=== PATIENT | female | born 1950 | race Caucasian/White ===

== ENCOUNTER 2017-09-16 06:28 | Emergency (ER) | payer BC, OTHER ==
[2017-09-16] MEDS ORDERED: Ibuprofen TAB* 800 MG PO ONE (06:57)
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
--- NOTE | 2017-09-16 07:48 | RAD ---
INDICATION: Left ankle pain COMPARISON: None TECHNIQUE: AP, lateral, and oblique views were obtained. FINDINGS: There is diffuse soft tissue swelling with small avulsed fragments from both medial and lateral malleoli. Along the medial aspect these may be related to a remote injury. The small avulsion fracture from the lateral malleolus appears acute. The ankle mortise is intact. Note is made of a prominent heel spur and degenerative spurring over the dorsum of the midfoot. IMPRESSION: DIFFUSE SOFT TISSUE SWELLING SMALL AVULSION INJURIES.
[2017-09-16 10:49] VITALS: BP 144/67
== END 2017-09-16 10:47 | disposition home or self-care (01) ==
LOC: ED 06:28
DX: S82.892A Other fracture of left lower leg, initial encounter for closed fracture (principal); M25.572 Pain in left ankle and joints of left foot; X50.0XXA Overexertion from strenuous movement or load, initial encounter; Y92.480 Sidewalk as the place of occurrence of the external cause
CPT/HCPCS: 99282; A9270-GY

== ENCOUNTER 2018-05-31 12:47 | Emergency (ER) | payer MEDICARE, OTHER ==
--- NOTE | 2018-05-31 14:41 | ED ---
Shortness of Breath - HPI Summary HPI Summary: This patient is a 67 year old F presenting to [facility] with a chief complaint of worsening SOB since one month ago. Symptoms not alleviated by Ventolin inhaler. Patient reports fatigue, pressure BELL, neck pain, weakness, back pain, difficulty moving the right side of her face and body, diarrhea, and dehydration. The symptoms began after a 3 day cold one month ago. Symptoms are not relieved by OTM medication. The patient states that she has a sensation of fullness and bloating after eating. The patient was seen at [facility] 1.5 weeks ago, diagnosed with a sinus infection, and placed on antibiotics. She has also started on Chantix to stop smoking but stopped after two days. The Chantix made her very ill, but it could also have been a reaction to the antibiotic. The patient says she has had too much diarrhea and had to stop taking her antibiotics. The stool would drip out of her rectum as a pure liquid. The patient says a CXR revealed something in the right side of her lung, but her doctor could not confirm what it was. The patient started taking Mucinex yesterday. SHX tobacco use. RX Inhaler. Vitals in the room: HR 84 bpm BP 127/83. - History of Current Complaint Chief Complaint: EDGeneral Time Seen by Provider: 05/31/18 14:11 Hx Obtained From: Patient Onset/Duration: Gradual Onset, Lasting Weeks, Still Present Timing: Constant Dyspnea At: Rest Associated Signs & Symptoms: Cough (Productive) - Allergy/Home Medications Allergies/Adverse Reactions: Allergies Allergy/AdvReac Type Severity Reaction Status Date / Time bee venom protein (honey bee) Allergy Anaphylatic Verified 05/31/18 15:07 Shock Hmszhbn-Mrh-Lrv Reductase Allergy Hives Verified 05/31/18 15:07 Inhibitor PMH/Surg Hx/FS Hx/Imm Hx Endocrine/Hematology History: Denies: Hx Anticoagulant Therapy, Hx Blood Disorders Respiratory History: Reports: Hx Asthma GI History: Reports: Hx Gastroesophageal Reflux Disease - OCC Sensory History: Reports: Hx Cataracts, Hx Contacts or Glasses - GLASSES Denies: Hx Hearing Aid Opthamlomology History: Reports: Hx Cataracts, Hx Contacts or Glasses - GLASSES Psychiatric History: Reports: Hx Depression - on med - Cancer History Hx Chemotherapy: No Hx Radiation Therapy: No - Surgical History Surgery Procedure, Year, and Place: TUBAL MANY YEARS A[place] [facility] [place] LAP BRITNEY [facility] [place] 2004. TRIGGER FINGER [facility] [place] 2009 Hx Anesthesia Reactions: No Infectious Disease History: No Infectious Disease History: Denies: Traveled Outside the [place] in Last 30 Days - Family History Known Family History: Positive: Other - asthma - Social History Alcohol Use: None Hx Substance Use: No Substance Use Type: Reports: None Hx Tobacco Use: Yes Smoking Status (MU): Current Every Day Smoker Length of Time of Smoking/Using Tobacco: 47 YRS Have You Smoked in the Last Year: Yes Review of Systems Positive: Fatigue ENT: Other - pain right side of face Positive: Shortness Of Breath, Cough Positive: Diarrhea, Other - bloated after eating Positive: Myalgia - neck, back Positive: Headache - pressure, Weakness All Other Systems Reviewed And Are Negative: Yes Physical Exam - Summary Physical Exam Summary: Appearance: The patient is well-nourished in no acute distress and in no acute pain. Skin: The skin is warm and dry and skin color reflects adequate perfusion. HEENT: The head is normocephalic and atraumatic. The pupils are equal and reactive. The conjunctivae are clear and without drainage. Nares are patent and without drainage. Mouth reveals moist mucous membranes and the throat is without erythema and exudate. The external ears are intact. The ear canals are patent and without drainage. The tympanic membranes are intact. Neck: The neck is supple with full range of motion and non-tender. There are no carotid bruits. There is no neck vein distension. Respiratory: Chest is non-tender. Lungs are clear to auscultation and breath sounds are decreased in all lung lowry. Cardiovascular: Heart is regular rate and rhythm. There is no murmur or rub auscultated. There is no peripheral edema and pulses are symmetrical and equal. Abdomen: The abdomen is soft and non-tender. There are normal bowel sounds heard in all four quadrants and there is no organomegaly palpated. Musculoskeletal: There is no back tenderness noted. Extremities are non-tender with full range of motion. There is good capillary refill. There is no peripheral edema or calf tenderness elicited. Neurological: Patient is alert and oriented to person, place and time. The patient has symmetrical motor strength in all four extremities. Cranial nerves are grossly intact. Deep tendon reflexes are symmetrical and equal in all four extremities. Psychiatric: The patient has an appropriate affect and does not exhibit any anxiety or depression Triage Information Reviewed: Yes Vital Signs On Initial Exam: Initial Vitals Temp Pulse Resp BP Pulse Ox 98.1 F 94 16 147/89 96 05/31/18 12:49 05/31/18 12:49 05/31/18 12:49 05/31/18 12:49 05/31/18 12:49 Vital Signs Reviewed: Yes Diagnostics - Vital Signs Vital Signs Temp Pulse Resp BP Pulse Ox 05/31/18 12:49 98.1 F 94 16 147/89 96 - Laboratory Result Diagrams: 05/31/18 14:53 05/31/18 14:53 Lab Statement: Any lab studies that have been ordered have been reviewed, and results considered in the medical decision making process. - Radiology CXR Radiology Interpretation Completed By: Radiologist Summary of Radiographic Findings: FINDINGS SUSPICIOUS FOR RIGHT UPPER LOBE AND RIGHT HILAR MASSES. RECOMMEND A. CT OF THE CHEST WITH CONTRAST FOR FURTHER EVALUATION. ED physician has reviewed this report - CT Chest CT Interpretation Completed By: Radiologist Summary of CT Findings: 1. RIGHT UPPER LOBE SPICULATED MASS SUSPICIOUS FOR BRONCHOGENIC CARCINOMA. 2. MARKEDLY ENLARGED MEDIASTINAL LYMPH NODES AND ENLARGED RIGHT HILAR AND RIGHT. SUPRACLAVICULAR LYMPH NODES. 3. COMPRESSION AND DISPLACEMENT OF THE TRACHEA AND RELATIVELY SEVERE COMPRESSION OF THE. SUPERIOR VENA CAVA BY THE MEDIASTINAL LYMPHADENOPATHY. 4. SMALL PERICARDIAL EFFUSION. 5. EMPHYSEMA. ED physician has reviewed this report. - EKG 15:11 Cardiac Rate: NL - 80 bpm EKG Rhythm: Sinus Rhythm Ectopy: None Course/Dx - Course Course Of Treatment: Ms. Matamoros presented with a concern for shortness of breath that has been as she coming on for a number of weeks. She saw her PCP who did a chest x-ray and recommended follow-up. She is nontoxic in appearance on arrival and her vital signs are stable but she looks uncomfortable. She is a smoker. Chest x-ray was obtained and did reveal a likely right sided mass. CT scan with contrast was obtained and revealed a likely bronchogenic tumor which is impinging on both her IVC and her trachea. I spoke with Dr. Rodriguez who recommended admission for further workup or follow-up early tomorrow if the patient refused. I did talk with her about the situation and she was unwilling to stay in the hospital. She is taking care of her older sister whose health is frail. I encouraged her to follow-up tomorrow with Dr. Rodriguez for further workup including a biopsy to know what to do from this point on. - Diagnoses Provider Diagnoses: Lung mass - Physician Notifications Discussed Care of Patient With: Ranjith Rodriguez Time Discussed With Above Provider: 18:45 Instructed by Provider To: Have Pt Call For Appt. - tomorrow 8am Discharge - Sign-Out/Discharge Documenting (check all that apply): Patient Departure - discharge Patient Received Moderate/Deep Sedation with Procedure: No - Discharge Plan Condition: Stable Disposition: HOME Patient Education Materials: Shortness of Breath (ED) Referrals: Selvin Bergman MD [Primary Care Provider] - Ranjith Rodriguez MD [Medical Doctor] - 1 Day Additional Instructions: Follow up with Dr. Rodriguez tomorrow morning at his office at 8am. Return to the emergency department with worsening symptoms before then, if necessary. - Billing Disposition and Condition Condition: STABLE Disposition: Home - Attestation Statements Document Initiated by Scribe: Yes Documenting Scribe: Wicho Solares Provider For Whom Mic is Documenting (Include Credential): James Johnson MD Scribe Attestation: IWicho, scribed for James Johnson MD on 05/31/18 at 2004. Scribe Documentation Reviewed: Yes Provider Attestation: The documentation as recorded by the Wicho walsh accurately reflects the service I personally performed and the decisions made by me, James Johnson MD Status of Scribe Document: Viewed
[2018-05-31 15:05] LABS: ABS Basophils 0.1 10^3/ul (0-0.2); ABS Eosinophils 0.1 10^3/ul (0-0.6); ABS Lymphocytes 1.8 10^3/ul (1.0-4.8); ABS Monocytes 0.5 10^3/ul (0-0.8); ABS Nucleated RBC 0 10^3/ul; Hematocrit 41 % (35-47); Hemoglobin 14.1 g/dl (12.0-16.0); Lymphocyte % 33.3 %; Mean Corpuscular HGB Conc 35 g/dl (31-36); Mean Corpuscular Hemoglobin 31 pg (27-31); Mean Corpuscular Volume 89 fL (80-97); Mean Platelet Volume 6.3 fL (7.4-10.4); Nucleated Red Blood Cells % 0; Platelet Count 286 10^3/ul (150-450); Red Blood Count 4.55 10^6/ul (4.00-5.40); Red Cell Distribution Width 13 % (10.5-15); White Blood Count 5.3 10^3/ul (3.5-10.8)
[2018-05-31 15:22] LABS: Albumin 4.4 g/dL (3.2-5.2); Albumin/Globulin Ratio 1.5 (1-3); BUN/Creatinine Ratio 26.7 (8-20); C Reactive Protein 4.19 mg/L (<8.01); Calcium 9.4 mg/dL (8.6-10.3); Globulin 2.9 g/dL (2-4); Potassium 4.3 mmol/L (3.5-5.0); Total Bilirubin 0.4 mg/dL (0.2-1.0); Total Protein 7.3 g/dL (6.4-8.9)
[2018-05-31] MEDS ORDERED: Iohexol 300* (CONTRAST) 10 ML SDV IV ONE (16:25)
[2018-05-31 18:36] LABS: Influenza A Molecular NEGATIVE (Negative); Influenza B Molecular NEGATIVE (Negative)
[2018-05-31 19:11] VITALS: BP 130/70
== END 2018-05-31 19:10 | disposition home or self-care (01) ==
LOC: ED 12:47
DX: R91.8 Other nonspecific abnormal finding of lung field (principal); R59.0 Localized enlarged lymph nodes; I31.3 Pericardial effusion (noninflammatory); J43.9 Emphysema, unspecified; R05 Cough; F32.9 Major depressive disorder, single episode, unspecified; Z88.8 Allergy status to other drugs, medicaments and biological substances; Z91.030 Bee allergy status; F17.200 Nicotine dependence, unspecified, uncomplicated
CPT/HCPCS: 36415; 71046; 71260; 80053; 83605; 83880; 84484; 85025; 85379; 86140; 87040; 93005; 99283; Q9967

== ENCOUNTER 2018-06-01 10:38 | Observation (INO) | payer MEDICARE, OTHER ==
[2018-06-01] MEDS ORDERED: Albuterol/Ipratropium NEB.SOL* Albuterol 2.5 MG/Ipratropium 0.5 MG 3 ML INH PRN (11:38)
[2018-06-01] MEDS ORDERED: Acetaminophen TAB* 325 MG PO PRN (11:38)
[2018-06-01] MEDS ORDERED: Ondansetron INJ* 2 MG/ML VIAL IV PRN (11:38)
[2018-06-01] MEDS ORDERED: oxyCODONE/Acetamin 5/325 MG* TAB PO PRN (11:38)
[2018-06-01] MEDS ORDERED: Pantoprazole TAB * 40 MG TAB PO PRN (11:44)
[2018-06-01] MEDS: LORazepam TAB(*) 1 MG PO PRN ×2 (13:27→21:03)
[2018-06-01] MEDS: Nicotine PATCH 21 MG/24 HR* PATCH TRANSDERM SCH (13:29)
[2018-06-01] MEDS: Enoxaparin(*) 40 MG/0.4 ML SYR SUBCUT SCH (13:32)
[2018-06-01 14:28] LABS: ABS Basophils 0 10^3/ul (0-0.2); ABS Eosinophils 0 10^3/ul (0-0.6); ABS Lymphocytes 1.5 10^3/ul (1.0-4.8); ABS Monocytes 0.3 10^3/ul (0-0.8); ABS Neutrophils 3.6 10^3/ul (1.5-7.7); ABS Nucleated RBC 0 10^3/ul; Eosinophil % 0.2 %; Hematocrit 42 % (35-47); Hemoglobin 14.6 g/dl (12.0-16.0); Lymphocyte % 27.1 %; Mean Corpuscular HGB Conc 35 g/dl (31-36); Mean Corpuscular Hemoglobin 31 pg (27-31); Mean Corpuscular Volume 89 fL (80-97); Mean Platelet Volume 6.4 fL (7.4-10.4); Nucleated Red Blood Cells % 0; Platelet Count 310 10^3/ul (150-450); Red Blood Count 4.68 10^6/ul (4.00-5.40); Red Cell Distribution Width 14 % (10.5-15); White Blood Count 5.4 10^3/ul (3.5-10.8)
[2018-06-01 14:33] LABS: INR 0.92 (0.77-1.02)
[2018-06-01 14:45] LABS: Albumin 4.7 g/dL (3.2-5.2); Albumin/Globulin Ratio 1.5 (1-3); BUN/Creatinine Ratio 22.8 (8-20); Calcium 9.6 mg/dL (8.6-10.3); EGFR African American 128.4 (>60); EGFR Non-African American 106.1 (>60); Globulin 3.1 g/dL (2-4); Potassium 3.9 mmol/L (3.5-5.0); Total Bilirubin 0.5 mg/dL (0.2-1.0); Total Protein 7.8 g/dL (6.4-8.9)
[2018-06-01] MEDS ORDERED: Iohexol 300* (CONTRAST) 10 ML SDV IV ONE (15:17)
[2018-06-01 15:27] LABS: Urine Appearance Cloudy; Urine Bacteria Absent (Absent); Urine Bilirubin Negative (Negative); Urine Blood Negative (Negative); Urine Color Yellow; Urine Glucose Negative (Negative); Urine Ketones 1+ (Negative); Urine Nitrite Negative (Negative); Urine Protein Negative (Negative); Urine Red Blood Cell Trace(0-2/hpf) (Absent); Urine Specific Gravity 1.016 (1.010-1.030); Urine Squamous Epithelial Cell Present (Absent); Urine Urobilinogen Negative (Negative); Urine White Blood Cell Trace(0-5/hpf) (Absent)
[2018-06-01] MEDS: NS 0.9% 1000 ML** 1,000 ML IV SCH (16:50)
--- NOTE | 2018-06-01 19:44 | CONS ---
PULMONARY CONSULTATION REPORT: DATE OF CONSULT: 06/01/18 CONSULTATION REQUESTED BY: Dr. Rodriguez. REASON FOR CONSULTATION: Evaluation of abnormal CT chest. HISTORY OF PRESENT ILLNESS: The patient is a 67-year-old female with history of asthma, GERD. The patient presented to the emergency room for evaluation of worsening shortness of breath for the past 2 weeks. The patient reports history of asthma/COPD in the past. The patient denies significant dyspnea on exertion. She has been having worsening shortness of breath over the past 2 weeks. The patient also reports generalized malaise. The patient reports decreased appetite. The patient denies significant weight loss. The patient reports mild dry cough. The patient reports worsening of shortness of breath when she lies down flat. She has to use 4 to 5 pillows at night. The patient reports breathing better when she sits up and leans forward. The patient denies fevers or chills. The patient denies recent travel. Further evaluation in the emergency room included chest x-ray followed by the CT scan of the chest. I have personally reviewed chest x-ray and CT scan of the chest. The patient is with evidence of right upper lobe and right hilar mass with deviation of trachea to the left side. The patient subsequently had CT scan of the chest, which was personally reviewed by me - the patient with evidence of significant mediastinal lymphadenopathy. The patient also with right supraclavicular lymphadenopathy. The patient with mass lesion in the right hilum extending from the right pretracheal to the precarinal area with compression of superior vena cava and the trachea. No significant abnormalities seen in visualized liver. The patient also with emphysematous changes and small pericardial effusion. Pulmonary consultation was requested for evaluation for bronchoscopy. The patient reports significant anxiety. She has chronic anxiety and is on medications. She is current everyday smoker, has been smoking for the past 47 years. No alcohol or drug abuse. No family history of malignancy. History of asthma in the family. PAST MEDICAL HISTORY: 1. GERD. 2. Asthma. 3. Anxiety/depression. PAST SURGICAL HISTORY: 1. Tubal ligation. 2. Laparoscopic cholecystectomy in 2003. 3. Trigger finger surgery in 2008. ALLERGIES: STATINS, BEE VENOM. SOCIAL HISTORY: Smoker, has been smoking 1 pack per day for the past 47 years. No alcohol or drug abuse. REVIEW OF SYSTEMS: All 14 systems reviewed and as per HPI. Other pertinent findings include diarrhea, bloating after eating. Myalgias and fatigue. Headache, anxiety, pain on right side of the face and chest pain and shortness of breath as described above. PHYSICAL EXAM: The patient is anxious, sitting up in bed. Vital Signs: Temperature 97.8, pulse 97 beats per minute, respiratory rate 20 per minute, O2 sat 100% on 2 L, blood pressure 133/74. HEENT: Pupils are equal and reactive to light. Mucous membranes moist. Lungs: Distant breath sounds. No wheeze. Cardiovascular: S1, S2 present, regular. Abdomen: Soft, nontender, nondistended. Bowel sounds present. Extremities: Normal range of motion. Skin : Erythema of the face. Lymphatic Exam: Palpable right supraclavicular lymph node. Neuro: Alert, awake, oriented x3. No focal deficits. DIAGNOSTIC STUDIES/LAB DATA: WBC count 5.4, hemoglobin 14.6, hematocrit 42, platelet count 310. Sodium 124, potassium 3.9, chloride 89, bicarb 27, BUN 13, creatinine 0.57. Alk phos 106. Influenza A and B negative. Chest x-ray and CT scan of the chest, as described above in HPI. IMPRESSION AND RECOMMENDATIONS: 67-year-old female with significant smoking history, admitted with worsening shortness of breath, worse with lying down, found to have large lung mass, dense lymphadenopathy in the mediastinum and superior vena cava syndrome highly concerning for malignancy. The patient also with supraclavicular lymphadenopathy that could be biopsied without having to put the patient through anesthesia that is required for bronchoscopy. The patient had supraclavicular lymph node biopsied this morning. Preliminary result is positive. She therefore does not need bronchoscopy at this time as the diagnosis is already obtained. She has a history of asthma and given the significant smoking history, might also have chronic obstructive pulmonary disease. She will need close monitoring of her respiratory status if she would be undergoing radiation. Will need baseline pulmonary function testing. Rest of management as per Oncology. Thank you for allowing me to participate in the care of your patient. Will follow with you as needed. [id number]/CPS #: [id number] MTDD
[2018-06-01] MEDS ORDERED: Nicotine Patch Removal NOTE PATCH OFF SCH (21:00)
[2018-06-01] MEDS ORDERED: Zolpidem TAB* 5 MG PO SCH (21:00)
[2018-06-01] MEDS: Senna TAB PO SCH (21:03)
[2018-06-02] MEDS: Senna TAB PO SCH (07:56)
[2018-06-02] MEDS: Nicotine PATCH 21 MG/24 HR* PATCH TRANSDERM SCH (08:07)
[2018-06-02] MEDS ORDERED: CMCS Escitalopram (NF) 10 MG TAB PO SCH (09:00)
[2018-06-02] MEDS: NS 0.9% 1000 ML** 1,000 ML IV SCH (10:55)
[2018-06-02] MEDS: Enoxaparin(*) 40 MG/0.4 ML SYR SUBCUT SCH (10:57)
[2018-06-02] MEDS: LORazepam TAB(*) 1 MG PO PRN (12:57)
[2018-06-02 13:29] VITALS: BP 137/68
--- NOTE | 2018-06-02 19:55 | DS ---
CC: Dr. Selvin Bergman; Dr. Rodriges * DISCHARGE SUMMARY: DATE OF ADMISSION: 06/01/18 DATE OF DISCHARGE: 06/02/18 PRIMARY CARE PROVIDER: Dr. Selvin Bergman. PRIMARY ONCOLOGIST AND ATTENDING PHYSICIAN: Dr. Ranjith Rodriguez.* (DICTATED BY PHILOMENA KRISHNAN) DISCHARGING PROVIDER: PHILOMENA Krishnan. PRIMARY DISCHARGE DIAGNOSES: 1. 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 2. Tobacco abuse - interested in quitting smoking. 3. Hyponatremia - most likely secondary to syndrome of inappropriate antidiuretic hormone secondary to small cell lung cancer, but asymptomatic at this time. 4. Anxiety disorder. 5. Chronic obstructive pulmonary disease without acute exacerbation. HOSPITAL IMAGIN. CT chest 05/31/18 demonstrates a right upper lobe spiculated mass suspicious for bronchogenic carcinoma, markedly enlarged mediastinal lymph nodes and enlarged right hilar and right supraclavicular lymph nodes, compression and displacement of the trachea and relative severe compression of the superior vena cava by the mediastinal lymphadenopathy, small pericardial effusion and emphysematous changes. 2. CT abdomen and pelvis demonstrates a 1-cm sclerotic lesion of the left iliac bone, likely representing a benign bone island, although metastatic lesion cannot be excluded and recommend a bone scan for further evaluation. Hepatic steatosis and small hepatic lesion, which is too small to characterize by CT, although likely representing a cyst. 3. CT of the brain demonstrates no evidence for metastatic disease or other intracranial acute pathology. DISCHARGE MEDICATIONS: 1. Escitalopram 30 mg p.o. daily. 2. Lansoprazole 30 mg p.o. daily. 3. Dexamethasone 8 mg p.o. daily taken days 2 through 4 with each chemotherapy cycle. 4. Ativan 1 mg p.o. q.4 hours as needed for severe anxiety. 5. Nicotine patch 21 mg with instructions to apply 1 patch daily. 6. Zyprexa 10 mg p.o. at bedtime, days 2 through 4 of chemotherapy. 7. Ondansetron 4 mg p.o. q.4 hours as needed for nausea and vomiting. 8. Compazine 10 mg p.o. q.6 hours as needed for nausea and vomiting. HOSPITAL COURSE: This is a 67-year-old woman with a significant smoking history and COPD, who presented to the emergency department with complaints of shortness of breath. She reported that she assumed that she had a pneumonia. Imaging in the emergency department demonstrated large lung mass and concern for impending SVC syndrome due to compression from associated mediastinal lymphadenopathy. The patient was seen by Dr. Rodriguez, 06/01/18, and decision was made for direct admission for expedited evaluation and symptom management. The patient had mild dyspnea at rest, but her symptoms were exacerbated while lying flat and reported that she had been sleeping with several pillows under her head for the last couple of weeks. No significant cough. No recent fevers. The patient was evaluated by Dr. Carbone during this hospitalization for possible bronchoscopy, but it appeared that there were accessible supraclavicular lymph nodes that were amenable to FNA. The patient underwent FNA which confirmed diagnosis of small cell lung cancer. CT scan of the brain was completed as the patient has severe claustrophobia, did not want to go forward with an MRI, did not show any obvious metastatic disease. CT of the abdomen and pelvis showed what was likely a benign sclerotic lesion of the pelvis and a very small hepatic lesion, also likely benign. Due to her severe symptoms and impending SVC syndrome, a decision was made to initiate treatment rapidly which the patient was agreeable to. The patient was started on cisplatin and etoposide with her first dose to be given shortly after discharge on 06/02/18. I reviewed the case briefly with the radiation oncologist, Dr. Nic Rodriges, with plans to initiate concurrent chemotherapy starting with cycle 2. DISPOSITION AND FOLLOWUP PLAN: The patient is being discharged to home where she lives with her disabled sibling, whom she acts as a primary caregiver. As mentioned above, the patient will initiate chemotherapy with cisplatin and etoposide the day of discharge, 06/02/18. Initial consultation has been made on her behalf with Dr. Nic Rodriges with Radiation Oncology with plans to start concurrent therapy with cycle 2. Bone scan will be ordered as an outpatient to further evaluate sclerotic bony lesion appreciated in the pelvis, but no need to delay treatment for this evaluation. PHILOMENA KRISHNAN [id number]/[facility] #: [id number] [facility]
== END 2018-06-02 13:20 | disposition home or self-care (01) ==
LOC: MEDTELE 12:02 → INTOOBSV 12:02
PROVIDERS: ADMIT Internal Medicine Hematology & Oncology; ATTEND Internal Medicine Hematology & Oncology
DX: C34.90 Malignant neoplasm of unspecified part of unspecified bronchus or lung (principal); F17.210 Nicotine dependence, cigarettes, uncomplicated; E87.1 Hypo-osmolality and hyponatremia; F41.9 Anxiety disorder, unspecified; J44.1 Chronic obstructive pulmonary disease with (acute) exacerbation; K21.9 Gastro-esophageal reflux disease without esophagitis; J45.909 Unspecified asthma, uncomplicated; F41.8 Other specified anxiety disorders; Z98.51 Tubal ligation status
CPT/HCPCS: A9270-GY; G0378; G0463; G8427; J1650; J2405; Q9967

== ENCOUNTER 2018-08-20 06:02 | Day surgery (SDC) | payer MEDICARE, OTHER ==
[~2018-08-20 06:02] MED LIST: Buffered Lidocaine 1% SYRIN* 1 ML/SYRINGE INTRADERM ONE; Lactated Ringers 1000 ML Bag* 1,000 ML IV SCH
[2018-08-20] MEDS ORDERED: Lidocaine 1% INJ* 10 MG/ML 30 ML SDV ONE (06:52)
[2018-08-20] MEDS ORDERED: ceFAZolin 2 GM PREMIX in ORs 2 GM/50 ML BAG IVPB ONE (07:02)
[2018-08-20] MEDS ORDERED: Propofol* 10 MG/ML 20 ML BTL ONE ×2 (07:07→07:10)
[2018-08-20] MEDS ORDERED: Midazolam* 1 MG/ML 2 ML VIAL (2 MG) ONE (07:07)
[2018-08-20] MEDS ORDERED: fentaNYL* 50 MCG/ML 2 ML VIAL (100 MCG VIAL) ONE (07:07)
[2018-08-20] MEDS ORDERED: Acetaminophen TAB* 325 MG PO PRN (07:20)
[2018-08-20] MEDS ORDERED: Naloxone* 0.4 MG/ML 1 ML VIAL IV PRN (07:20)
[2018-08-20] MEDS ORDERED: DiMENhydriNATE IV* 50 MG/ML VIAL IV PUSH PRN (07:20)
[2018-08-20] MEDS ORDERED: oxyCODONE/Acetamin 5/325 MG* TAB PO PRN (07:20)
[2018-08-20] MEDS ORDERED: fentaNYL* 50 MCG/ML 2 ML VIAL (100 MCG VIAL) IV PRN (07:20)
[2018-08-20] MEDS ORDERED: Ondansetron INJ* 2 MG/ML VIAL IV PRN (07:20)
[2018-08-20] MEDS ORDERED: Buffered Lidocaine 1% SYRIN* 1 ML/SYRINGE INTRADERM ONE (07:24)
[2018-08-20 09:21] VITALS: BP 113/80
--- NOTE | 2018-08-20 11:20 | OP ---
AMENDED REPORT TO CORRECT ACCOUNT NUMBER CC: Dr. Rodriguez; Dr. Rodriges; Dr. Bergman * DATE OF OPERATION: 08/20/18 - [facility] DATE OF : 52 SURGEON: Shawn Blas MD CARRIER ASSOCIATE: None. ANESTHESIOLOGIST: Dr. Emery. ANESTHESIA: LMAC anesthesia as well as infiltration by the surgeon. PRE-OP DIAGNOSIS: Carcinoma of the lung. POST-OP DIAGNOSIS: Carcinoma of the lung. OPERATIVE PROCEDURE: Left subclavian 8-Cameroonian PowerPort. DESCRIPTION OF PROCEDURE: The patient was supine on the operating room table. After adequate intravenous sedation, compression stockings, Lizbeth Hugger warmer, and intravenous antibiotics, the left chest was prepped with antiseptic and draped in a sterile fashion. Local infiltrative anesthesia was administered. The subclavian incision was approximately 3 cm was created. Venipuncture was carried out. The guidewire passed through the peel-away introducer, measured, and cut at 27 cm, attached to the port, which was sutured in the pocket with 2- 0 Prolene. The pocket was closed with 3-0 and 5-0 Vicryl followed by Steri- Strips. The port was accessed. There was good blood return, this was flushed with saline solution and heparinized solution followed by Tegaderm dressing. She tolerated the procedure well. She was brought to recovery in good condition. No complications. No drains. No pathologic specimen. Sponge and instrument counts correct. Estimated blood loss was 10 mL. [id number]/[facility] #: [id number] MTDD
== END 2018-08-20 09:22 | disposition home or self-care (01) ==
LOC: OR 06:02
PROVIDERS: ATTEND Surgery
DX: C34.11 Malignant neoplasm of upper lobe, right bronchus or lung (principal); C78.89 Secondary malignant neoplasm of other digestive organs; J44.9 Chronic obstructive pulmonary disease, unspecified; K21.9 Gastro-esophageal reflux disease without esophagitis; F41.8 Other specified anxiety disorders; F17.210 Nicotine dependence, cigarettes, uncomplicated; I87.1 Compression of vein; Z51.11 Encounter for antineoplastic chemotherapy
CPT/HCPCS: 71045; 76000; 96375; 96413; 99212; C1788; G0463; J0690; J1100; J1642; J2250; J2704; J3010; J9181; Q0164

== ENCOUNTER 2018-09-02 13:36 | Inpatient (IN) | payer MEDICARE, OTHER ==
[2018-09-02] MEDS ORDERED: Fluconazole 400 MG IVPREMIX(*) 400 MG/200 ML BAG IVPB ONE (14:19)
[2018-09-02] MEDS: NS 0.9% 1000 ML** 1,000 ML IV SCH (15:50)
[2018-09-02] MEDS ORDERED: Albuterol HFA INHALER* 8 gm MDI INH PRN (15:53)
[2018-09-02] MEDS ORDERED: Morphine ORAL CONCENTRATE* 5 MG/0.25 ML ORAL.SYRIN PO PRN (15:56)
[2018-09-02] MEDS ORDERED: Lorazepam PYXIS KEY PRN (16:18)
[2018-09-02] MEDS ORDERED: LORazepam INJ* 2 MG/ML 1 ML VIAL IV PUSH PRN (16:18)
[2018-09-02] MEDS: Magic Mouth Was-BEN/MAAL/LIDO SWISH SWAL SCH ×2 (17:41→22:22)
[2018-09-02] MEDS: Polyethylene Glycol 3350* 17 GM PACKET PO SCH (17:42)
[2018-09-02] MEDS: Calcium Carbonate CHEW TAB* 500 MG (TUMS) PO SCH ×2 (17:42→22:22)
[2018-09-02] MEDS: fentaNYL Patch Check Q Shift 1 NOTE FOLLOW UP SCH (19:27)
[2018-09-03 06:02] LABS: ABS Lymphocytes 0.3 10^3/ul (1.0-4.8); ABS Monocytes 0.2 10^3/ul (0-0.8); ABS Neutrophils 0.8 10^3/ul (1.5-7.7); Eosinophil % 1.1 %; Hematocrit 29 % (35-47); Hemoglobin 10.1 g/dL (12.0-16.0); Mean Corpuscular HGB Conc 35 g/dL (31-36); Mean Corpuscular Hemoglobin 32 pg (27-31); Mean Corpuscular Volume 92 fL (80-97); Mean Platelet Volume 7.2 fL (7.4-10.4); Nucleated Red Blood Cells % 0.6; Platelet Count 23 10^3/uL (150-450); Red Blood Count 3.18 10^6 /uL (3.70-4.87); Red Cell Distribution Width 17 % (10.5-15); White Blood Count 1.3 10^3/uL (3.5-10.8)
[2018-09-03 06:15] LABS: Albumin 3.1 g/dL (3.2-5.2); Albumin/Globulin Ratio 1.1 (1-3); BUN/Creatinine Ratio 20.5 (8-20); Calcium 8.8 mg/dL (8.6-10.3); EGFR Non-African American 164.4 (>60); Globulin 2.9 g/dL (2-4); Magnesium 1.5 mg/dL (1.9-2.7); Potassium 3.9 mmol/L (3.5-5.0); Total Bilirubin 0.5 mg/dL (0.2-1.0)
[2018-09-03] MEDS: fentaNYL Patch Check Q Shift 1 NOTE FOLLOW UP SCH ×2 (06:52→18:38)
[2018-09-03] MEDS: NS 0.9% 1000 ML** 1,000 ML IV SCH ×2 (08:28→22:43)
[2018-09-03] MEDS: Magic Mouth Was-BEN/MAAL/LIDO SWISH SWAL SCH ×4 (08:30→22:43)
[2018-09-03] MEDS: Calcium Carbonate CHEW TAB* 500 MG (TUMS) PO SCH ×4 (08:31→22:45)
[2018-09-03] MEDS: Polyethylene Glycol 3350* 17 GM PACKET PO SCH (08:42)
[2018-09-03] MEDS ORDERED: LEXAPRO 30 MG PO SCH (09:00)
[2018-09-03] MEDS ORDERED: guaiFENesin/CODIEN 100MG-10MG* 5 ML UDC PO PRN (11:43)
[2018-09-03] MEDS ORDERED: Magnesium Sulf 4 GM/100 ML IV* 4,000 MG/100 ML BAG IVPB ONE (11:46)
[2018-09-03] MEDS ORDERED: Polyethylene Glycol 3350* 17 GM PACKET PO PRN (12:00)
--- NOTE | 2018-09-03 12:00 | PN ---
Progress Note - Progress Note Date of Service: 09/03/18 SOAP: Subjective: []Feels very weak and out of it. Maybe a little better than yesterday. Still very frustrated with pain with swallowing and veyr poor PO intake. Coughed a lot last night and throat hurts. BM this AM Medications: Albuterol (Ventolin Hfa Inhaler*) 2 puff INH Q4H PRN PRN Reason: SHORTNESS OF BREATH Calcium Carbonate (Tums*) 250 mg PO QID [facility] Last Admin: 09/03/18 08:31 Dose: 250 mg Fentanyl (Duragesic Patch 12 Mcg/Hr *) 12 mcg TRANSDERM Q72HR [facility] Guaifenesin/Codeine Phosphate (Robitussin Ac 100mg-10mg*) 5 ml PO Q4H PRN PRN Reason: COUGH Heparin Sodium (Porcine) (Heparin Flush Port (Ivad)) 5 ml FLUSH DAILY [facility]; Protocol Last Admin: 09/03/18 08:38 Dose: Not Given Fluconazole/Sodium Chloride (Diflucan 200 Mg Ivpremix(*)) 200 mg in 100 mls @ 100 mls/hr IVPB Q24H [facility] Sodium Chloride (Ns 0.9% 1000 Ml) 1,000 mls @ 75 mls/hr IV PER RATE [facility] Last Admin: 09/03/18 08:28 Dose: 75 mls/hr Magnesium Sulfate (Magnesium Sulf 4 Gm/100 Ml Iv*) 4,000 mg in 100 mls @ 33.333 mls/hr IVPB ONCE ONE Stop: 09/03/18 14:45 Lorazepam (Ativan Inj*) 0.5 mg IV PUSH Q4H PRN PRN Reason: ANXIETY Miscellaneous (Ativan Pyxis Merino) 1 ea N/A .ATIVAN IV MERINO PRN PRN Reason: PYXIS MERINO Morphine Sulfate (Morphine Oral Concentrate*) 5 mg PO Q2H PRN PRN Reason: PAIN Multi-Ingredient Mouthwash/Gargle (Magic Mouth Was-Aldair/Maal/Lido*) 10 ml SWISH SWAL QID [facility] Last Admin: 09/03/18 08:30 Dose: 10 ml Lexapro Liquid 30 Mg 1 dose PO DAILY [facility] Pharmacy Profile Note (Fentanyl Patch Check Q Shift) 1 note FOLLOW UP 0700, 1900 [facility] Last Admin: 09/03/18 06:52 Dose: 1 note Polyethylene Glycol/Electrolytes (Miralax*) 17 gm PO DAILY [facility] Last Admin: 09/03/18 08:42 Dose: 17 gm Objective: [] Vital Signs Temp Pulse Resp BP Pulse Ox 97.4 F 95 18 133/69 95 09/03/18 07:45 09/03/18 07:45 09/03/18 08:00 09/03/18 07:45 09/03/18 07:45 A&Ox3, EOMI, neuro grossly non-focal Flat affect. HRR, S1S2 LS clear bilat., wet cough with sm. amt. frothy sputum +BS no edema Laboratory Results - last 24 hr 09/02/18 09/03/18 09/03/18 12:34 05:42 05:42 WBC 1.3 L RBC 3.18 L Hgb 10.1 L Hct 29 L MCV 92 MCH 32 H MCHC 35 RDW 17 H Plt Count 23 L MPV 7.2 L Neut % (Auto) 63.7 Lymph % (Auto) 22.0 [place] % (Auto) 12.5 Eos % (Auto) 1.1 Baso % (Auto) 0.7 Absolute Neuts (auto) 0.8 L Absolute Lymphs (auto) 0.3 L Absolute Monos (auto) 0.2 Absolute Eos (auto) 0.0 Absolute Basos (auto) 0.0 Absolute Nucleated RBC 0.0 Nucleated RBC % 0.6 Sodium 136 Potassium 3.9 Chloride 100 L Carbon Dioxide 30 Anion Gap 6 BUN 8 Creatinine 0.39 L Est GFR ( Amer) 199.0 Est GFR (Non-Af Amer) 164.4 BUN/Creatinine Ratio 20.5 H Glucose 93 Calcium 8.8 Magnesium 1.5 L Total Bilirubin 0.50 AST 13 ALT 15 Alkaline Phosphatase 78 Total Protein 6.0 L Albumin 3.1 L Globulin 2.9 Albumin/Globulin Ratio 1.1 Blood Type A Positive Antibody Screen Negative Crossmatch See Detail Assessment: []67 yo female with limited stage small cell lung cancer s/p XRT, 3 cycles of Cis/Etoposide, and now C4D17 Carbo/Etoposide admitted with chemotherapy induced pancytopenia and hypotension improved with transfusion and fluids. She unfortunately has cont.'d dysphagia and odoynophagia despite tx. of thrush and I think it prudent to evaluate the degree of dysphagia with EGD. My suspicion is this is a secondary fungal infection of a recurrent esophagitis (flare from chemo following RT), however with persistence and degree of limitation on PO intake I feel it prudent to evaluate with GI. She unfortunately cont.'d to have grade 3 thrombocytopenia making an intervention more difficult, visualization could occur with pre-procedure platelets, however dilation or biopsy could not. Plan: []1. Dysphagia: consult GI, Dr. Roberto - consider EGD to eval for esophagitis vs. thrush vs. stricture post RT - recommendation for inpt. vs. outpateint - cont. BMX QID 2. Cough: has been ongoing for some time, and likely disease related, however she complains of worsening over last week - chest CXR to eval. further as nothing heard on exam - add guaifenesin/codeine PRN 3. Neutropenia: improving, suspect she will recover over next several days - cont. precautions, call for any fever >/= 100.4 4. Thrombocytopenia: monitor for any bleeding - consider tranfusion for procedure, otherwise follow daily counts 5. Constipation: resolved with miralax, change to PRN Dispo: dependent on GI consult, later today or tomorrow afternoon
[2018-09-03] MEDS: ESCITALOPRAM PO SCH (12:33)
[2018-09-03] MEDS: ORALSYR PO SCH (12:33)
[2018-09-03] MEDS ORDERED: Ondansetron INJ* 2 MG/ML VIAL IV PRN (16:15)
[2018-09-03] MEDS: Fluconazole 200 MG IVPREMIX(*) 200 MG/100 ML BAG IVPB SCH (17:13)
[2018-09-03] MEDS ORDERED: fentaNYL PATCH 12 MCG/HR TRANSDERM SCH (17:30)
--- NOTE | 2018-09-03 18:22 | CONS ---
CC: Dr. Ranjith Rodriguez; Trisha Alfred NP CONSULTATION REPORT: DATE OF CONSULT: 09/03/18 REASON FOR CONSULT: Dysphagia. HISTORY OF PRESENT ILLNESS: This is a 67-year-old female with a history of likely small cell lung ca ncer, who has been complaining of dysphagia for the last 2 to 3 months. She states that it occurs wi th both solids and liquids. She has had difficulty swallowing her pills over the last 1 to 2 months as well. She also admits to odynophagia with both solids and liquids. She admits to subjective weig ht loss, but is not able to quantify. She states that at home that she is now retorting to basically drinking liquids with not much else. She states that even when she drinks water, she will have emes is. She denies any typical reflux symptoms or abdominal discomfort. She states that she moves her b owels every day to every other day with occasional straining. No black or blood in the stool. She s tates that she had a colonoscopy about 10 years ago. She believes she had polyps, but she is not sam te sure of the result. Denies any family history of esophageal cancer or colon cancer or GI cancer. She admits to a recent skin rash, which she started prednisone for. The remainder of the 14-point r eview of systems is grossly negative. PAST MEDICAL HISTORY: 1. Small cell lung cancer, limited stage. 2. COPD. 3. XRT from 06/22/18 to 07/30/18. PAST SURGICAL HISTORY: Cholecystectomy and tubal ligation. HOME MEDICATIONS: Include: 1. Aleve. 2. Ativan. 3. BMX. 4. Cetirizine. 5. Dexamethasone. 6. Hydrocodone. 7. Lexapro. 8. Mucinex. 9. Nystatin. 10. Olanzapine. 11. Ondansetron. 12. Oxycodone. 13. Prochlorperazine. 14. Sucralfate. 15. Ventolin. ALLERGIES: BEE VENOM and STATINS. FAMILY HISTORY: No family history of GI cancer or inflammatory bowel disease. Brother had T-cell lym phoma. REVIEW OF SYSTEMS: The remainder of the 14-point review of systems is grossly negative. PHYSICAL EXAM: Vital Signs: Blood pressure 131/72, pulse is 89, respiratory rate is 12, she is 97.7 temperature, and 96% on room air. In general, chronically ill- appearing, in no acute distress. HE ENT: Atraumatic, normocephalic. Pupils equal, round and reactive to light. Extraocular movements a re intact. Sclerae are anicteric. Conjunctivae are pink. Cardiovascular: Regular rate and rhythm, S1, S2. Pulmonary: Diminished, but grossly clear. Abdomen: Soft, nontender, nondistended. Bowel sounds positive. Extremities: No clubbing, no cyanosis, no edema. DIAGNOSTIC STUDIES/LAB DATA: Hemoglobin 10.1, platelet count 23, BUN is 8, creatinine 0.39, magnesiu m 1.50 with total bilirubin 0.50, AST 13, ALT 15, albumin 3.1. ASSESSMENT AND PLAN: This is a 67-year-old female with small cell lung cancer, status post XRT and c hemotherapy, presenting with new onset dysphagia over the last 1 to 2 months. 1. Dysphagia. The dysphagia has reached the point where she is mostly on liquids at home and has di fficulty even with these. Discussed possible evaluation including upper endoscopy. The risks, benef its and alternatives were discussed with her and she would like to proceed. Her platelet count is 23 ,000 at this point. I discussed with Trisha Alfred NP, ideally I would like this over 50,000 as ther e is a potential for intervention to be done, including biopsy plus or minus dilatation. She will co ordinate to give the patient platelets on 09/04/18 and will tentatively plan on upper endoscopy to ev aluate the etiology of this and the differential would be a fungal esophagitis, erosive esophagitis, and potentially radiation stricture among others. 2. Small cell lung carcinoma per primary team. [id number]/[facility] #: [id number]
[2018-09-04] MEDS: fentaNYL Patch Check Q Shift 1 NOTE FOLLOW UP SCH ×2 (06:26→18:58)
[2018-09-04 07:17] LABS: Albumin 3.1 g/dL (3.2-5.2); Albumin/Globulin Ratio 1.1 (1-3); BUN/Creatinine Ratio 14.3 (8-20); Calcium 8.5 mg/dL (8.6-10.3); EGFR African American 182.7 (>60); Globulin 2.9 g/dL (2-4); Potassium 3.6 mmol/L (3.5-5.0); Total Bilirubin 0.4 mg/dL (0.2-1.0)
[2018-09-04 07:27] LABS: ABS Lymphocytes 0.3 10^3/ul (1.0-4.8); ABS Monocytes 0.2 10^3/ul (0-0.8); ABS Neutrophils 0.9 10^3/ul (1.5-7.7); Eosinophil % 0.8 %; Hematocrit 30 % (35-47); Hemoglobin 10.5 g/dL (12.0-16.0); Lymphocyte % 22.9 %; Mean Corpuscular HGB Conc 35 g/dL (31-36); Mean Corpuscular Hemoglobin 32 pg (27-31); Mean Corpuscular Volume 92 fL (80-97); Mean Platelet Volume 8.3 fL (7.4-10.4); Nucleated Red Blood Cells % 0.7; Platelet Count 22 10^3/uL (150-450); Red Blood Count 3.25 10^6 /uL (3.70-4.87); Red Cell Distribution Width 17 % (10.5-15); White Blood Count 1.5 10^3/uL (3.5-10.8)
[2018-09-04] MEDS: Magic Mouth Was-BEN/MAAL/LIDO SWISH SWAL SCH ×4 (10:22→21:22)
[2018-09-04] MEDS: Calcium Carbonate CHEW TAB* 500 MG (TUMS) PO SCH ×4 (10:23→21:22)
[2018-09-04] MEDS: ORALSYR PO SCH (10:23)
[2018-09-04] MEDS: ESCITALOPRAM PO SCH (10:23)
[2018-09-04] MEDS: NS 0.9% 1000 ML** 1,000 ML IV SCH (12:31)
[2018-09-04 14:40] LABS: Platelet Count 55 10^3/uL (150-450)
[2018-09-04] MEDS ORDERED: fentaNYL* 50 MCG/ML 2 ML VIAL (100 MCG VIAL) ONE (14:51)
[2018-09-04] MEDS ORDERED: Midazolam* 1 MG/ML 10 ML VIAL (10 MG) ONE (14:51)
[2018-09-04] MEDS: Fluconazole 200 MG IVPREMIX(*) 200 MG/100 ML BAG IVPB SCH (17:55)
--- NOTE | 2018-09-04 17:56 | PN ---
Progress Note - Progress Note Date of Service: 09/04/18 SOAP: Subjective: [Swapna reports that she is feeling well this morning. She has little to no pain at the time of interview.] Objective: [ Laboratory Results - last 24 hr 09/04/18 09/04/18 09/04/18 06:05 06:05 14:13 WBC 1.5 L RBC 3.25 L Hgb 10.5 L Hct 30 L MCV 92 MCH 32 H MCHC 35 RDW 17 H Plt Count 22 L 55 L D MPV 8.3 8.0 Neut % (Auto) 62.4 Lymph % (Auto) 22.9 [place] % (Auto) 13.6 Eos % (Auto) 0.8 Baso % (Auto) 0.3 Absolute Neuts (auto) 0.9 L Absolute Lymphs (auto) 0.3 L Absolute Monos (auto) 0.2 Absolute Eos (auto) 0.0 Absolute Basos (auto) 0.0 Absolute Nucleated RBC 0.0 Nucleated RBC % 0.7 Sodium 137 Potassium 3.6 Chloride 101 Carbon Dioxide 30 Anion Gap 6 BUN 6 Creatinine 0.42 L Est GFR ( Amer) 182.7 Est GFR (Non-Af Amer) 151.0 BUN/Creatinine Ratio 14.3 Glucose 93 Calcium 8.5 L Total Bilirubin 0.40 AST 16 ALT 18 Alkaline Phosphatase 82 Total Protein 6.0 L Albumin 3.1 L Globulin 2.9 Albumin/Globulin Ratio 1.1 Albuterol (Ventolin Hfa Inhaler*) 2 puff INH Q4H PRN PRN Reason: SHORTNESS OF BREATH Calcium Carbonate (Tums*) 250 mg PO QID [facility] Last Admin: 09/04/18 14:21 Dose: 250 mg Escitalopram Oxalate (Escitalopram Oxalate Coco*) 30 mg PO DAILY [facility] Last Admin: 09/04/18 10:23 Dose: 30 mg Fentanyl (Duragesic Patch 12 Mcg/Hr *) 12 mcg TRANSDERM Q72HR@1730 [facility] Last Admin: 09/03/18 18:34 Dose: 12 mcg Guaifenesin/Codeine Phosphate (Robitussin Ac 100mg-10mg*) 5 ml PO Q4H PRN PRN Reason: COUGH Last Admin: 09/03/18 22:45 Dose: 5 ml Heparin Sodium (Porcine) (Heparin Flush Port (Ivad)) 5 ml FLUSH DAILY [facility]; Protocol Last Admin: 09/04/18 10:29 Dose: Not Given Fluconazole/Sodium Chloride (Diflucan 200 Mg Ivpremix(*)) 200 mg in 100 mls @ 100 mls/hr IVPB Q24H [facility] Last Admin: 09/03/18 17:13 Dose: 100 mls/hr Sodium Chloride (Ns 0.9% 1000 Ml) 1,000 mls @ 75 mls/hr IV PER RATE [facility] Last Admin: 09/04/18 12:31 Dose: 75 mls/hr Lorazepam (Ativan Inj*) 0.5 mg IV PUSH Q4H PRN PRN Reason: ANXIETY Miscellaneous (Ativan Pyxis Merino) 1 ea N/A .ATIVAN IV MERINO PRN PRN Reason: PYXIS MERINO Morphine Sulfate (Morphine Oral Concentrate*) 5 mg PO Q2H PRN PRN Reason: PAIN Multi-Ingredient Mouthwash/Gargle (Magic Mouth Was-Aldair/Maal/Lido*) 10 ml SWISH SWAL QID [facility] Last Admin: 09/04/18 14:20 Dose: 10 ml Ondansetron HCl (Zofran Inj*) 4 mg IV Q4H PRN PRN Reason: NAUSEA/VOMITING Last Admin: 09/03/18 17:11 Dose: 4 mg Pharmacy Profile Note (Fentanyl Patch Check Q Shift) 1 note FOLLOW UP 0700, 1900 [facility] Last Admin: 09/04/18 06:26 Dose: 1 note Polyethylene Glycol/Electrolytes (Miralax*) 17 gm PO DAILY PRN PRN Reason: CONSTIPATION Vital Signs: Temp Pulse Resp BP Pulse Ox 98.2 F 92 16 135/72 93 09/04/18 13:50 09/04/18 13:50 09/04/18 13:50 09/04/18 13:50 09/04/18 13:50 Exam: Gen: Chronically ill but overall pretty well appearing in NAD HEENT: thrush present Neck: supple and nonTTP CV: RRR no m/r/g Resp: CTA, no w/c/r Abd: soft nonTTP Ext: no edema [Assessment: []67 yo female with limited stage small cell lung cancer s/p XRT, 3 cycles of Cis/Etoposide, and now C4D18 Carbo/Etoposide admitted with chemotherapy induced pancytopenia and hypotension improved with transfusion and fluids. She had persistent dysphagia and odoynophagia prompting GI evaluation who agreed with plan for EGD which was performed by Dr Velásquez this afternoon and demonstrated severe esophagitis, likely secondary to radiation. Plan: []1. Dysphagia secondary to severe esophagitis - recommendations for a full liquid diet and medications crushed to a powder until symptoms resolve per GI - start carafate, use BMX prn comfort 2. Neutropenia: secondary to chemotherapy - improving, suspect she will recover over next several days - cont. precautions, call for any fever >/= 100.4 3. Thrombocytopenia: secondary to chemotherapy - improved s/p transfusion of 2U of platelets 4. DVT prophylaxis: - held chemical prophylaxis due to thrombocytopenia Dispo: anticipate dc tomorrow with continued recommendation for full liquid diet and crushed medications
[2018-09-04] MEDS: Sucralfate SUSP 1 GM/10 ml 10 ML UDC PO SCH (21:22)
--- NOTE | 2018-09-05 02:38 | PRO ---
DATE: 09/04/18 - ROOM #[id number] REFERRING PHYSICIAN: Megan Rousseau MD * OPERATIVE PROCEDURE: Upper gastrointestinal endoscopy and removal of impacted food; esophageal brushing for viral culture; esophageal biopsy at 21 cm, diagnosed stricture. INDICATIONS: This 67-year-old woman has been having trouble swallowing for a number of weeks. She mentioned trouble with her pills today. She said that yesterday she had been able to take in some chicken and carrots, although they seemed firm to her. In the preceding day, she had had chicken again with some mashed potatoes. She actually said she was feeling better. Her platelet count had fallen to 22 and thus she received a platelet transfusion and recheck showed it 55 and to 55 in this afternoon. She denies having had an upper endoscopy before. She is getting very 3 weeks cycles of chemotherapy with curative intent, due in 1 week again. She had radiation treatment to the mediastinum and right upper lobe, ending 07/30/18. Her DNR order was temporarily suspended. ENDOSCOPIST: Dr. Velásquez. MEDICATIONS: Midazolam 10, fentanyl 50. FINDINGS: She is a chronically ill-appearing woman with chemotherapy-induced baldness. Her breathing was stable and breath sounds intact bilaterally. She is in no acute distress. Aside actually a day or two, she had been feeling better just in a general sense. She was not salivating. She was positioned left side down and moderate sedation induced with sequential doses of medication. EGD: Larynx - no significant views though the mucosa just at the cricopharyngeus appeared normal. Esophagus - difficult entry and just beyond the upper sphincter, there was severe circumferential erosive change with exudate. It was a continuous 360- degree involvement. There was great deal of fibrinous exudate. There appeared to be some food and this was advanced into the stomach. A foreign body retrieval net was used to remove some material. Also, that appeared to be a mixture of food and predominantly exudate. Long strips of exudate were carried down into the gastric fundus. At that point, a better view could be obtained and there was clearly normal esophageal mucosa of about 37, back to 26 and then in abrupt cut off to a severe ulcerating process. That was continuous cylindrically up to about 16 cm, cricopharyngeus was at 15. A brushing was obtained and submitted for viral culture. Biopsy x4 were obtained near 21 to 22 cm. There was clearly enough lumen for the scope to go through, no focal stricture requiring dilation. Stomach - generally normal in the cardia, fundus, body, and antrum. There were no erosions and no bleeding. Duodenum - some minimal erythema at the apex of the bulb, but no ulcers. The second, third and limited views of the fourth portion of duodenum were normal. IMPRESSION: 1. 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 Pills should be all ground to powder in applesauce equivalent and intake full liquids at best. If she tolerates that, pureed diet might be entertained. 2. Chemotherapy-induced pancytopenia - no excess bleeding was seen. [id number]/[facility] #: [id number] [facility]
[2018-09-05] MEDS: fentaNYL Patch Check Q Shift 1 NOTE FOLLOW UP SCH (07:13)
[2018-09-05 07:26] VITALS: BP 136/62
[2018-09-05] MEDS: Sucralfate SUSP 1 GM/10 ml 10 ML UDC PO SCH ×2 (07:35→11:52)
[2018-09-05] MEDS: NS 0.9% 1000 ML** 1,000 ML IV SCH (07:35)
[2018-09-05] MEDS: Magic Mouth Was-BEN/MAAL/LIDO SWISH SWAL SCH (08:48)
[2018-09-05] MEDS: Calcium Carbonate CHEW TAB* 500 MG (TUMS) PO SCH (08:48)
[2018-09-05] MEDS: ESCITALOPRAM PO SCH (11:52)
[2018-09-05] MEDS: ORALSYR PO SCH (11:52)
== END 2018-09-05 11:55 | disposition home health service (06) | DRG 326 ==
LOC: MED 13:36 → OBSVTOIN 09-03 13:36
PROVIDERS: ADMIT Registered Nurse Oncology; ATTEND Internal Medicine Hematology & Oncology
PROC: 30233N1 Transfusion of Nonautologous Red Blood Cells into Peripheral Vein, Percutaneous Approach (ICD-10-PCS; principal; 2018-09-02)
PROC: 0DC Gastrointestinal System, Extirpation (ICD-10-PCS; 2018-09-04)
PROC: 30233R1 Transfusion of Nonautologous Platelets into Peripheral Vein, Percutaneous Approach (ICD-10-PCS; 2018-09-04)
PROC: 0DD58ZX Extraction of Esophagus, Via Natural or Artificial Opening Endoscopic, Diagnostic (ICD-10-PCS; 2018-09-04)
DX: K20.9 Esophagitis, unspecified (principal); D61.810 Antineoplastic chemotherapy induced pancytopenia; C34.90 Malignant neoplasm of unspecified part of unspecified bronchus or lung; E86.0 Dehydration; T45.1X5A Adverse effect of antineoplastic and immunosuppressive drugs, initial encounter; Y92.239 Unspecified place in hospital as the place of occurrence of the external cause; K12.30 Oral mucositis (ulcerative), unspecified; J44.9 Chronic obstructive pulmonary disease, unspecified; I95.9 Hypotension, unspecified; K59.00 Constipation, unspecified; F32.9 Major depressive disorder, single episode, unspecified; F17.210 Nicotine dependence, cigarettes, uncomplicated; Z82.49 Family history of ischemic heart disease and other diseases of the circulatory system; Z80.1 Family history of malignant neoplasm of trachea, bronchus and lung; Z80.7 Family history of other malignant neoplasms of lymphoid, hematopoietic and related tissues; Z98.51 Tubal ligation status; Z90.49 Acquired absence of other specified parts of digestive tract; Z88.8 Allergy status to other drugs, medicaments and biological substances; Z91.030 Bee allergy status; Z88.2 Allergy status to sulfonamides
CPT/HCPCS: 36415; 71046; 80053; 83735; 85025; 85049; 86850; 86900; 86901; 86922; 87252; 88305; 99156; 99157; 99219; 99221; 99232; 99233; A9270-GY; J1450; J1642; J2250; J2405; J3010; J3475; P9035; P9040

== ENCOUNTER 2018-09-21 14:52 | Observation (INO) | payer MEDICARE, OTHER ==
[2018-09-21] MEDS ORDERED: LORazepam INJ* 2 MG/ML 1 ML VIAL IV PUSH PRN (15:27)
[2018-09-21] MEDS ORDERED: Lorazepam PYXIS KEY PRN (15:27)
[2018-09-21] MEDS ORDERED: Enoxaparin(*) 40 MG/0.4 ML SYR SUBCUT SCH (16:00)
[2018-09-21] MEDS: Metoclopramide IV* 5 MG/ML 2 ML VIAL IV SCH ×2 (16:24→21:30)
[2018-09-21] MEDS: NS 0.9% w/ 20 Meq KCL 1000 ML* 1,000 ML IV SCH (17:33)
[2018-09-21] MEDS ORDERED: Ondansetron ODT TAB* 4 MG PO PRN (18:15)
[2018-09-21] MEDS ORDERED: Albuterol HFA INHALER* 8 gm MDI INH PRN (18:15)
[2018-09-21] MEDS: fentaNYL Patch Check Q Shift 1 NOTE FOLLOW UP SCH ×2 (19:01→21:39)
[2018-09-21] MEDS ORDERED: Nicotine Patch Removal NOTE PATCH OFF SCH (21:00)
[2018-09-21] MEDS: Sucralfate SUSP 1 GM/10 ml 10 ML UDC PO SCH (21:30)
[2018-09-21] MEDS: Magic Mouth Was-BEN/MAAL/LIDO SWISH SWAL SCH (21:30)
[2018-09-21] MEDS ORDERED: fentaNYL PATCH 12 MCG/HR TRANSDERM SCH (22:00)
[2018-09-22] MEDS: NS 0.9% w/ 20 Meq KCL 1000 ML* 1,000 ML IV SCH (07:32)
[2018-09-22] MEDS: fentaNYL Patch Check Q Shift 1 NOTE FOLLOW UP SCH (07:36)
[2018-09-22] MEDS: Sucralfate SUSP 1 GM/10 ml 10 ML UDC PO SCH ×2 (08:26→12:32)
[2018-09-22] MEDS: Magic Mouth Was-BEN/MAAL/LIDO SWISH SWAL SCH ×2 (08:31→12:33)
[2018-09-22] MEDS: Metoclopramide IV* 5 MG/ML 2 ML VIAL IV SCH (08:43)
[2018-09-22] MEDS ORDERED: ESCITALOPRAM PO SCH (09:00)
[2018-09-22] MEDS ORDERED: Fluconazole SUSP* ORALSYR 40 MG/ML PO SCH (09:00)
[2018-09-22] MEDS ORDERED: Nicotine PATCH 21 MG/24 HR* PATCH TRANSDERM SCH (09:00)
[2018-09-22] MEDS ORDERED: Fluconazole ORAL.SUSP* 40 MG/ML 35 ML BTL PO SCH (09:00)
[2018-09-22] MEDS ORDERED: ORALSYR PO SCH (09:00)
[2018-09-22 09:03] LABS: ABS Lymphocytes 0.4 10^3/ul (1.0-4.8); ABS Neutrophils 1.6 10^3/ul (1.5-7.7); Eosinophil % 0.1 %; Hematocrit 27 % (35-47); Hemoglobin 9.5 g/dL (12.0-16.0); Lymphocyte % 19.7 %; Mean Corpuscular HGB Conc 35 g/dL (31-36); Mean Corpuscular Hemoglobin 33 pg (27-31); Mean Corpuscular Volume 94 fL (80-97); Mean Platelet Volume 6.5 fL (7.4-10.4); Platelet Count 142 10^3/uL (150-450); Red Cell Distribution Width 17 % (10-15)
[2018-09-22 09:27] LABS: Albumin 3.2 g/dL (3.2-5.2); Albumin/Globulin Ratio 1.2 (1-3); BUN/Creatinine Ratio 24.4 (8-20); EGFR African American 168.2 (>60); Globulin 2.7 g/dL (2-4); Magnesium 1.7 mg/dL (1.9-2.7); Potassium 3.8 mmol/L (3.5-5.0); Total Bilirubin 0.4 mg/dL (0.2-1.0); Total Protein 5.9 g/dL (6.4-8.9)
[2018-09-22] MEDS ORDERED: Magnesium Sulfate 2 GM IV* 2 GM/50 ML BAG IVPB ONE (09:59)
[2018-09-22 12:10] VITALS: BP 124/68
--- NOTE | 2018-09-22 14:08 | DS ---
Amended report to enter cosigning physician. CC: Dr. Bergman; Dr. Rodriguez* DISCHARGE SUMMARY: DATE OF ADMISSION: 09/21/18 DATE OF DISCHARGE: 09/22/18 PRIMARY CARE PROVIDER: Dr. Bergman. PRIMARY ONCOLOGIST: Dr. Ranjith Rodriguez. ATTENDING PHYSICIAN: Dr. Ranjith Rodriguez* (dictated by PHILOMENA Krishnan). DISCHARGING PROVIDER: PHILOMENA Krishnan. PRIMARY DISCHARGE DIAGNOSES: 1. Chemotherapy induced nausea, vomiting, and diarrhea. 2. Pancytopenia secondary to chemotherapy. 3. Hypokalemia and hypomagnesemia secondary to gastrointestinal loss. 4. Limited stage small cell lung cancer status post cycle 5 of carboplatin and etoposide. DISCHARGE MEDICATIONS: 1. Albuterol inhaler 2 puff inhaled q.4 hours as needed for shortness of breath. 2. Cetirizine 1 tablet p.o. daily. 3. Fluconazole suspension 400 mg p.o. daily. 4. Lorazepam 1 mg p.o. q.4 hours as needed for anxiety or nausea. 5. Nicotine patch 21 mg placed transdermally once daily. 6. Zofran 4 mg p.o. q.6 hours as needed. 7. MiraLAX 17 g p.o. daily. 8. Lexapro 30 mg p.o. daily. 9. Fentanyl patch 12 mcg applied every 72 hours. 10. Magic Mouthwash 10 mL swish and spit 4 times daily as needed. 11. Carafate 1 g p.o. 4 times daily. HOSPITAL IMAGING: None. HOSPITAL COURSE: This is a 68-year-old female with limited stage small cell lung cancer under treatment with Dr. Ranjith Rodriguez, who completed concurrent phase of chemotherapy and radiation, recently received her fifth cycle of carboplatin and etoposide. Her course of treatment has been complicated by multiple hospitalizations and severe esophagitis. Shortly after receiving chemotherapy on 09/17/18, the patient developed worsening nausea, vomiting, and diarrhea. Despite receiving supportive care measures in the chemotherapy suite , she was felt to be too weak to safely return home and was subsequently admitted to a period of observation for further supportive care measures and electrolyte repletion. The patient remained afebrile throughout her hospitalization. She is not neutropenic. She has some mild anemia and thrombocytopenia secondary to chemotherapy. Potassium was initially 3.3, repleted to 3.8 at the time of discharge. Magnesium was initially normal, dropped to 1.7 after additional IV fluids and given 2 g of magnesium prior to discharge. At the time of discharge, the patient's nausea and diarrhea had improved and she had had no further episodes of vomiting. 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 She is appropriate for discharge home, but requested consultation with clinical geriatric social worker and referral for additional home care services. DISPOSITION AND FOLLOWUP PLAN: The patient is being discharged to home in stable condition where she lives with her sister as noted above. I discussed with the patient and her [id number] about the strategies to increase some help in the home and continue to attempt to utilize a more proactive approach to symptom management for her. She will be seen in the oncology office on 09/28, but encouraged to call with any new or worsening symptoms prior to that time. The patient maintains on a pureed diet and liquid or crushed medications due to severe esophagitis that appears to be improving at this time. PHILOMENA KRISHNAN [id number]/[facility] #: [id number] GIO
== END 2018-09-22 15:45 | disposition home or self-care (01) ==
LOC: MEDTELE 15:44 → INTOOBSV 15:44
PROVIDERS: ADMIT Registered Nurse Oncology; ATTEND Registered Nurse Oncology
DX: C34.90 Malignant neoplasm of unspecified part of unspecified bronchus or lung (principal); D61.810 Antineoplastic chemotherapy induced pancytopenia; T45.1X5A Adverse effect of antineoplastic and immunosuppressive drugs, initial encounter; Y92.9 Unspecified place or not applicable; R11.2 Nausea with vomiting, unspecified; Z92.21 Personal history of antineoplastic chemotherapy; R06.02 Shortness of breath; R19.7 Diarrhea, unspecified; E87.6 Hypokalemia; E83.42 Hypomagnesemia; Z79.899 Other long term (current) drug therapy; F17.210 Nicotine dependence, cigarettes, uncomplicated; J44.9 Chronic obstructive pulmonary disease, unspecified; F32.9 Major depressive disorder, single episode, unspecified; J32.9 Chronic sinusitis, unspecified; E86.0 Dehydration
CPT/HCPCS: 36415; 80053; 83735; 85025; 96365; 96366; 96372; 96375; 99217; 99219; A9270-GY; G0378; J1642; J1650; J2060; J2765; J3475

== ENCOUNTER 2018-11-16 07:55 | Inpatient (IN) | payer MEDICARE, OTHER ==
[2018-11-16] MEDS ORDERED: NS 0.9% 1000 ML** 1,000 ML IV ONE (08:13)
--- NOTE | 2018-11-16 08:21 | ED ---
Substance Abuse/Use - HPI Summary HPI Summary: Pt is a 68 y/o F presenting to the ED brought in by EMS for an overdose. She states last night she took too many Ativan, per triage note, and that she was trying to end her life. A friend went to her house this morning to check on her because the pt was having dizzy spells yesterday, and she found the pt on the floor of the bathroom. The pt states she has attempted suicide in the past, but it was many years ago. Hx of small cell lung CA. - History Of Current Complaint Chief Complaint: EDSuicidal Stated Complaint: UNRESPONSIVE PER EMS Time Seen by Provider: 11/16/18 08:01 Hx Obtained From: Patient Onset/Duration of Drug/ETOH Abuse: Hours Ingestion History: Type/Name Of Drug - Ativan, Amount Ingested - "60-70 pills" Overdose Characteristics: Oral Severity Initially: Moderate Severity Currently: Moderate Character: Other - somnolent Associated Signs And Symptoms: Intentional Ingestion Related Hx: Suicidal, Suicidal: Prior Attempt(s) - Allergies/Home Medications Allergies/Adverse Reactions: Allergies Allergy/AdvReac Type Severity Reaction Status Date / Time bee venom protein (honey bee) Allergy Anaphylatic Verified 11/13/18 09:44 Shock Ujmjemn-Kvd-Ccs Reductase Allergy Hives Verified 11/13/18 09:44 Inhibitor Sulfa (Sulfonamide Allergy Unknown Verified 11/13/18 09:44 Antibiotics) Reaction Details Home Medications: Home Medications Betamethasone Dipropionate [Augmented Betamethasone D] 0.05 % TOPICAL BID [History Confirmed 11/16/18] Cyclobenzaprine TAB* [Flexeril 10 MG TAB*] 10 mg PO BEDTIME 11/16/18 [History Confirmed 11/16/18] EPINEPHrine [Epipen 2-Evangelist] 0.3 mg IM ONCE PRN 11/16/18 [History Confirmed ] Escitalopram * [Lexapro *] 30 mg PO DAILY 11/16/18 [History Confirmed 11/16/18] Fexofenadine (NF) [Carey 180 (NF)] 180 mg PO DAILY 11/16/18 [History Confirmed 11/16/18] Fluticasone NASAL SPRAY 50MCG* [Flonase NASAL SPRAY 50MCG*] 2 spray BOTH NARES DAILY 11/16/18 [History Confirmed 11/16/18] LORazepam TAB(*) [Ativan 0.5 MG TAB (*)] 0.5 mg PO QID PRN MDD 2 mg 11/16/18 [ History Confirmed 11/16/18] Lansoprazole CAP (NF) [Prevacid CAP (NF)] 30 mg PO DAILY 11/16/18 [History Confirmed 11/16/18] Magnesium Oxide TAB* [MagOx 400 TAB*] 400 mg PO BID 11/16/18 [History Confirmed 11/16/18] Metoclopramide TAB* [Reglan TAB*] 10 mg PO TID PRN 11/16/18 [History Confirmed 11/16/18] Nystatin TOP POWDER* 1 applic TOPICAL BID 11/16/18 [History Confirmed 11/16/18] Sucralfate SUSP (NF) [Carafate SUSP (NF)] 10 ml PO ACHS 11/16/18 [History Confirmed 11/16/18] fentaNYL PATCH 12 MCG/HR * [Duragesic Patch 12 Mcg/Hr *] 12 mcg TRANSDERM Q72HR 11/16/18 [History Confirmed 11/16/18] PMH/Surg Hx/FS Hx/Imm Hx Previously Healthy: Yes Endocrine/Hematology History: Denies: Hx Anticoagulant Therapy, Hx Blood Disorders, Hx Diabetes Cardiovascular History: Denies: Hx Hypertension, Other Cardiovascular Problems/Disorders Respiratory History: Reports: Hx Asthma - tree allergy, has ventolin, Other Respiratory Problems/Disorders - sinus infections GI History: Reports: Hx Gastroesophageal Reflux Disease - takes tums as needed, Other GI Disorders - cholecystectomy Denies: Hx Irritable Bowel, Hx Ulcer History: Denies: Hx Renal Disease, Other Problems/Disorders Sensory History: Reports: Hx Cataracts - Bilateral cataract extractions, Hx Contacts or Glasses - glasses Denies: Hx Hearing Aid Opthamlomology History: Reports: Hx Cataracts - Bilateral cataract extractions, Hx Contacts or Glasses - glasses Neurological History: Reports: Other Neuro Impairments/Disorders - Claustrophobia Psychiatric History: Reports: Hx Anxiety - on meds, Hx Depression - on med - Cancer History Cancer Type, Location and Year: lung Hx Chemotherapy: Yes - Currently receiving chemo-had radiation Hx Radiation Therapy: No - Surgical History Surgery Procedure, Year, and Place: TUBAL MANY YEARS AGO [facility] [place]. LAP BRITNEY [facility] [place] 2003. TRIGGER FINGER [facility] [place] 2009. BILATERAL CATARACT EXTRACTIONS 2014 Hx Anesthesia Reactions: No Infectious Disease History: No Infectious Disease History: Denies: Traveled Outside the [place] in Last 30 Days - Family History Known Family History: Positive: Respiratory Disease - asthma - Social History Alcohol Use: None Hx Substance Use: No Substance Use Type: Reports: None Hx Tobacco Use: Yes Smoking Status (MU): Former Smoker Type: Cigarettes Amount Used/How Often: 48 PACK YEARS Length of Time of Smoking/Using Tobacco: 47 YRS Have You Smoked in the Last Year: Yes Review of Systems Neurological: Other - dizzy spells yesterday Positive: Depressed All Other Systems Reviewed And Are Negative: Yes Physical Exam - Summary Physical Exam Summary: GENERAL: Patient is a well-developed and nourished F who is somewhat somnolent in the stretcher. Patient is not in any acute respiratory distress. HEAD AND FACE: Normocephalic EYES: PERRLA, EOMI x 2. EARS: Hearing grossly intact. MOUTH: Oropharynx within normal limits. NECK: Supple, trachea is midline, no adenopathy, no JVD, no carotid bruit. CHEST: Symmetric, no tenderness at palpation LUNGS: Clear to auscultation bilaterally. No wheezing or crackles. CVS: Tachycardic, regular rhythm, S1 and S2 present, no murmurs or gallops appreciated. ABDOMEN: Soft, non-tender. Bowel sounds are normal. No abnormal abdominal pulsations. EXTREMITIES: Full ROM in all major joints, no edema, no cyanosis or clubbing. NEURO: Alert and oriented x 3. No acute neurological deficits. Speech is normal and follows commands. SKIN: Dry and warm Triage Information Reviewed: Yes Vital Signs On Initial Exam: Initial Vitals Temp Pulse Resp BP Pulse Ox 96.1 F 109 13 131/72 99 11/16/18 08:05 11/16/18 08:05 11/16/18 08:05 11/16/18 08:05 11/16/18 08:05 Vital Signs Reviewed: Yes - Luca Coma Scale Best Eye Response: 4 - Spontaneous Best Motor Response: 6 - Obeys Commands Best Verbal Response: 5 - Oriented Coma Scale Total: 15 Diagnostics - Vital Signs Vital Signs Temp Pulse Resp BP Pulse Ox 11/16/18 08:05 96.1 F 109 13 131/72 99 - Laboratory Result Diagrams: 11/16/18 08:26 11/16/18 08:26 Lab Statement: Any lab studies that have been ordered have been reviewed, and results considered in the medical decision making process. - Radiology CXR Radiology Interpretation Completed By: Radiologist Summary of Radiographic Findings: No active cardiopulmonary disease. - CT Brain CT CT Interpretation Completed By: Radiologist Summary of CT Findings: 1. No acute intracranial abnormality. 2. Mild chronic small vessel ischemic disease is likely. ED physician has reviewed this report. - EKG 0826 Cardiac Rate: Tachycardia - 105bpm EKG Rhythm: Sinus Tachycardia ST Segment: Normal Ectopy: None Summary of EKG Findings: EKG at 0826 shows sinus tachycardia at 105bpm with nml axis and nml intervals. No STEMI. Course/Dx - Course Course Of Treatment: Pt is a 68 y/o F presenting to the ED brought in by EMS for an overdose. She states last night she took too many Ativan, per triage note, and that she was trying to end her life. Hx small cell lung CA. The pt's physical exam is nml aside from being tachycardic and somnolent. EKG at 0826 shows sinus tachycardia at 105bpm with nml axis and nml intervals. No STEMI. CXR shows no active cardiopulmonary disease. Brain CT shows: 1. No acute intracranial abnormality. 2. Mild chronic small vessel ischemic disease is likely. Pts lab results show MCV of 99, MCH of 33, RDW of 17, MPV of 6.8, Chloride of 98, BUN/Creatinine ratio of 26.7, and TSH of 6.74. All other lab work is WNL. The pt was given fluids in the ED. Poison control was called who advised getting an EKG, and observing the pt for minimum of 6 hours. I spoke with Dr. Rodriguez who recommended admission to [facility] [place], and then I spoke with Dr. Sams around 1406 who will come to evaluate her for admission. Her dx include suicide attempt and intential drug overdose. - Diagnoses Provider Diagnoses: Drug overdose, intentional, Suicide attempt - Physician Notifications Discussed Care Of Patient With: Benito Sams Time Discussed With Above Provider: 14:06 Instructed by Provider To: Admit As Inpatient Discharge - Sign-Out/Discharge Documenting (check all that apply): Patient Departure - Discharge Plan Condition: Stable Disposition: ADMITTED TO [facility] - Billing Disposition and Condition Condition: STABLE Disposition: Admitted to [facility] - Attestation Statements Document Initiated by Mic: Yes Documenting Scribe: Elina Jackson Provider For Whom Mic is Documenting (Include Credential): Ivanna Doll MD. Scribe Attestation: IElina, scribed for Ivanna Doll MD. on 11/16/18 at 1756. Scribe Documentation Reviewed: Yes Provider Attestation: The documentation as recorded by the scribe, Elina Jackson accurately reflects the service I personally performed and the decisions made by me, Mann Doll MD. Status of Scribe Document: Viewed Consult Consult: [id number] - I spoke with Dr. Rodriguez about the pt's present condition who recommends admission to the hospital. [id number] - I spoke with Dr. Sams who will be evaluating the patient for admission.
[2018-11-16 08:34] LABS: ABS Lymphocytes 0.2 10^3/ul (1.0-4.8); ABS Monocytes 0.6 10^3/ul (0-0.8); ABS Neutrophils 8.6 10^3/ul (1.5-7.7); Eosinophil % 0.2 %; Hematocrit 39 % (35-47); Hemoglobin 13.2 g/dL (12.0-16.0); Lymphocyte % 2.1 %; Mean Corpuscular HGB Conc 34 g/dL (31-36); Mean Corpuscular Hemoglobin 33 pg (27-31); Mean Corpuscular Volume 99 fL (80-97); Mean Platelet Volume 6.8 fL (7.4-10.4); Platelet Count 182 10^3/uL (150-450); Red Blood Count 3.98 10^6 /uL (3.70-4.87); Red Cell Distribution Width 17 % (10-15); White Blood Count 9.5 10^3/uL (3.5-10.8)
[2018-11-16 08:54] LABS: ALT 10 U/L (7-52); AST 15 U/L (13-39); Albumin 4.1 g/dL (3.2-5.2); Albumin/Globulin Ratio 1.3 (1-3); Alkaline Phosphatase 94 U/L (34-104); Anion Gap 9 mmol/L (2-11); BUN/Creatinine Ratio 26.7 (8-20); Blood Urea Nitrogen 16 mg/dL (6-24); CO2 Carbon Dioxide 30 mmol/L (22-32); Calcium 9.7 mg/dL (8.6-10.3); Chloride 98 mmol/L (101-111); EGFR African American 120.7 (>60); EGFR Non-African American 99.7 (>60); Globulin 3.2 g/dL (2-4); Glucose 142 mg/dL (70-100); Potassium 4.5 mmol/L (3.5-5.0); Sodium 137 mmol/L (135-145); Total Protein 7.3 g/dL (6.4-8.9); Troponin I 0.01 ng/mL (<0.04)
[2018-11-16 09:06] LABS: Acetaminophen < 15 mcg/mL; Alcohol < 10 mg/dL (<10); Salicylate < 2.50 mg/dL (<30)
[2018-11-16 09:21] LABS: TSH (Thyroid Stimulating Horm) 6.74 mcIU/mL (0.34-5.60)
[2018-11-16 10:29] LABS: Urine Appearance Cloudy; Urine Bilirubin Negative (Negative); Urine Blood Negative (Negative); Urine Color Yellow; Urine Glucose Negative (Negative); Urine Ketones Negative (Negative); Urine Nitrite Negative (Negative); Urine Protein Negative (Negative); Urine Specific Gravity 1.012 (1.010-1.030); Urine Urobilinogen Negative (Negative)
[2018-11-16 10:53] LABS: Urine Benzodiazepine Screen None Detected (None Detect); Urine Opiates Screen None Detected (None Detect)
[2018-11-16] MEDS ORDERED: Albuterol HFA INHALER* 8 gm MDI INH PRN (14:41)
--- NOTE | 2018-11-16 14:54 | ADMNOTE ---
Subjective Date of Service: 11/16/18 Interval History: ADMISSION HISTORY AND PHYSICAL EXAM: Allergies Allergy/AdvReac Type Severity Reaction Status Date / Time bee venom protein (honey bee) Allergy Anaphylatic Verified 11/13/18 09:44 Shock Vrzpbdp-Dhw-Dwf Reductase Allergy Hives Verified 11/13/18 09:44 Inhibitor Sulfa (Sulfonamide Allergy Unknown Verified 11/13/18 09:44 Antibiotics) Reaction Details Home Medications Medication Instructions Recorded Confirmed Type Albuterol HFA INHALER* [Ventolin 2 puff INH Q4H PRN 08/19/18 11/16/18 History HFA Inhaler*] Betamethasone Dipropionate 0.05 % TOPICAL BID 11/16/18 11/16/18 History [Augmented Betamethasone D] Cyclobenzaprine TAB* [Flexeril 10 10 mg PO BEDTIME 11/16/18 11/16/18 History MG TAB*] EPINEPHrine [Epipen 2-Evangelist] 0.3 mg IM ONCE PRN 11/16/18 11/16/18 History Escitalopram * [Lexapro *] 30 mg PO DAILY 11/16/18 11/16/18 History Fexofenadine (NF) [Carey 180 180 mg PO DAILY 11/16/18 11/16/18 History (NF)] Fluticasone NASAL SPRAY 50MCG* 2 spray BOTH NARES DAILY 11/16/18 11/16/18 History [Flonase NASAL SPRAY 50MCG*] LORazepam TAB(*) [Ativan 0.5 MG 0.5 mg PO QID PRN MDD 2 mg 11/16/18 11/16/18 History TAB (*)] Lansoprazole CAP (NF) [Prevacid 30 mg PO DAILY 11/16/18 11/16/18 History CAP (NF)] Magnesium Oxide TAB* [MagOx 400 400 mg PO BID 11/16/18 11/16/18 History TAB*] Metoclopramide TAB* [Reglan TAB*] 10 mg PO TID PRN 11/16/18 11/16/18 History Nystatin TOP POWDER* 1 applic TOPICAL BID 11/16/18 11/16/18 History Sucralfate SUSP (NF) [Carafate 10 ml PO ACHS 11/16/18 11/16/18 History SUSP (NF)] fentaNYL PATCH 12 MCG/HR * 12 mcg TRANSDERM Q72HR 11/16/18 11/16/18 History [Duragesic Patch 12 Mcg/Hr *] HPI: The patient lives with her sister. This AM the sister found the patient unconcious on the BR floor and pressed her personal alarm. At some point the patient was alert enough to tell the EMT that she took many lorazepam tablets. Family History: Findings - Brother had T-cell lymphoma Social History: Unchanged from Admission - Lives with a sister. Daughter Meagan is her SDM. Former smoker. No alcohol abuse. Past Medical History: Findings - Shanti, tubal ligation. Small cell lung ca dx , chemo through 09/2018. 2 children Review of Systems - Measurements Intake and Output: Intake and Output Last 24 Hours 11/14/18 11/15/18 11/16/18 11/17/18 06:59 06:59 06:59 06:59 Intake Total 1000 Balance 1000 Intake: IV Fluids 1000 - Review of Systems General Comments: unable to obtain due to poor LOC Objective Active Medications: Albuterol (Ventolin Hfa Inhaler*) 2 puff INH Q4H PRN PRN Reason: SHORTNESS OF BREATH Enoxaparin Sodium (Lovenox(*)) 40 mg SUBCUT Q24H MERY Fluticasone Propionate (Flonase Nasal [place] 50mcg*) 2 spray BOTH NARES DAILY MERY Potassium Chloride/Dextrose (D5w 1/2 Ns Kcl 20 Meq 1000 Ml*) 1,000 mls @ 100 mls/hr IV PER RATE MERY Magnesium Oxide (Magox 400 Tab*) 400 mg PO BID MERY Pantoprazole Sodium (Protonix Tab*) 40 mg PO DAILY MERY; Protocol Vital Signs - 8 hr 11/16/18 11/16/18 11/16/18 07:58 08:02 08:05 Temperature 96.1 F Pulse Rate 113 112 109 Respiratory 15 19 13 Rate Blood Pressure 131/72 131/72 (mmHg) O2 Sat by Pulse 94 94 99 Oximetry 11/16/18 11/16/18 11/16/18 08:28 08:59 09:00 Temperature Pulse Rate 106 104 104 Respiratory 20 17 17 Rate Blood Pressure 137/90 132/97 (mmHg) O2 Sat by Pulse 99 98 98 Oximetry 11/16/18 11/16/18 11/16/18 09:28 09:58 10:00 Temperature Pulse Rate 101 103 103 Respiratory 19 18 18 Rate Blood Pressure 111/81 115/76 (mmHg) O2 Sat by Pulse 99 99 100 Oximetry 11/16/18 11/16/18 11/16/18 10:28 10:58 11:00 Temperature Pulse Rate 109 100 99 Respiratory 15 22 18 Rate Blood Pressure 147/104 117/69 (mmHg) O2 Sat by Pulse 100 99 98 Oximetry 11/16/18 11/16/18 11:15 11:28 Temperature Pulse Rate 99 98 Respiratory 22 30 Rate Blood Pressure 117/69 97/66 (mmHg) O2 Sat by Pulse 98 99 Oximetry Oxygen Devices in Use Now: Nasal Cannula Appearance: Stuporous, occ opens eyes briefly but does not speak. Looks comfortable. Eyes: No Scleral Icterus Neck: NL Appearance and Movements; NL JVP, No Thyroid Enlargement, Masses Respiratory: Symmetrical Chest Expansion and Respiratory Effort, Clear to Auscultation, Clear to Percussion Cardiovascular: NL Sounds; No Murmurs; No JVD, RRR, No Edema, - Abdominal: NL Sounds; No Tenderness; No Distention, No Hepatosplenomegaly, - Extremities: No Edema, No Clubbing, Cyanosis, - Skin: No Nodules or Sclerosis, - - Right malar area very red, typical of rug burn/pressure injury Neurological: - - Stuporous, occ opens eyes but does not speak. No tremor. Result Diagrams: 11/16/18 08:26 11/16/18 08:26 Assess/Plan/Problems-Billing Assessment: - Patient Problems (1) Overdose Current Visit: Yes Status: Acute Code(s): T50.901A - POISONING BY UNSP DRUG/ MEDS/BIOL SUBST, ACCIDENTAL, INIT SNOMED Code(s): 28838130 Comment: Patient stated due to lorazepam. IV fluids, observe overnight with constant observation. (2) Small cell lung cancer Current Visit: No Status: Acute Code(s): C34.90 - MALIGNANT NEOPLASM OF UNSP PART OF UNSP BRONCHUS OR LUNG SNOMED Code(s): 034019646 Comment: Management per Dr. Rodriguez. (3) Depression Current Visit: No Status: Acute Code(s): F32.9 - MAJOR DEPRESSIVE DISORDER, SINGLE EPISODE, UNSPECIFIED SNOMED Code(s): 30532787 Comment: Hold all psychoactive meds, uncertain of everything she took with her overdose. (4) Radiation esophagitis Current Visit: No Status: Acute Code(s): K20.8 - OTHER ESOPHAGITIS SNOMED Code(s): 380104638 Comment: Continue lanzoprazole.
[2018-11-16] MEDS: Enoxaparin(*) 40 MG/0.4 ML SYR SUBCUT SCH (17:47)
[2018-11-16] MEDS: D5W 1/2 NS KCl 20 Meq 1000 ML* 1,000 ML IV SCH (17:49)
[2018-11-16] MEDS: Magnesium Oxide TAB* 400 MG PO SCH (21:46)
[2018-11-17] MEDS: D5W 1/2 NS KCl 20 Meq 1000 ML* 1,000 ML IV SCH (04:18)
[2018-11-17] MEDS: Magnesium Oxide TAB* 400 MG PO SCH ×2 (08:54→21:13)
[2018-11-17] MEDS: Fluticasone NASAL SPRAY 50MCG* 16 gm SPRAY BTL BOTH NARES SCH (08:54)
[2018-11-17] MEDS: Pantoprazole TAB * 40 MG TAB PO SCH (08:54)
--- NOTE | 2018-11-17 14:33 | PN ---
Subjective Date of Service: 11/17/18 Interval History: Pt is very upset and states that she didn't even realize what she was doing when she was overdosing on the ativan. She does c/o pain in her back and shoulders. She denies SOB. Objective Active Medications: Albuterol (Ventolin Hfa Inhaler*) 2 puff INH Q4H PRN PRN Reason: SHORTNESS OF BREATH Enoxaparin Sodium (Lovenox(*)) 40 mg SUBCUT Q24H [facility] Last Admin: 11/16/18 17:47 Dose: 40 mg Escitalopram Oxalate (Lexapro *) 30 mg PO DAILY [facility] Fentanyl (Duragesic Patch 12 Mcg/Hr *) 12 mcg TRANSDERM Q72HR [facility] Fluticasone Propionate (Flonase Nasal [place] 50mcg*) 2 spray BOTH NARES DAILY [facility] Last Admin: 11/17/18 08:54 Dose: 2 spray Heparin Sodium (Porcine) (Heparin Flush Port (Ivad)) 0 ml FLUSH DAILY [facility] Last Admin: 11/17/18 11:52 Dose: Not Given Hydroxyzine HCl (Atarax Tab*) 50 mg PO Q6H PRN PRN Reason: ANXIETY Magnesium Oxide (Magox 400 Tab*) 400 mg PO BID [facility] Last Admin: 11/17/18 08:54 Dose: 400 mg Pantoprazole Sodium (Protonix Tab*) 40 mg PO DAILY [facility]; Protocol Last Admin: 11/17/18 08:54 Dose: 40 mg Vital Signs - 8 hr 11/17/18 07:15 Temperature 97.4 F Pulse Rate 94 Respiratory 20 Rate Blood Pressure 112/60 (mmHg) O2 Sat by Pulse 97 Oximetry Oxygen Devices in Use Now: Nasal Cannula - 97% on 2L Appearance: Middle aged female lying in bed, tearful, NAD Eyes: No Scleral Icterus Ears/Nose/Mouth/Throat: Mucous Membranes Moist Respiratory: Symmetrical Chest Expansion and Respiratory Effort, Clear to Auscultation, - - diminished breath sounds throughout Cardiovascular: NL Sounds; No Murmurs; No JVD, RRR, No Edema Abdominal: NL Sounds; No Tenderness; No Distention Extremities: No Clubbing, Cyanosis Skin: No Nodules or Sclerosis Neurological: Alert and Oriented x 3, - - very remorseful, tearful - Nutrition: Malnutrition Diagnosis/Plan Malnutrition Assessment by Registered Dietitian: Malnutrition Assessment Clinical Characteristics Chronic,Severe Malnutrition Assessment: Severe Muscle Wasting - Temporal muscle Criteria Inadequate Oral Intake - Pt reports poor appetite/intake - Anticipate meeting <75% of nutrient needs >1 mo. Unintentional Wt loss - Pt reports unintentional wt loss - current wt 120lb, prev wt on record 168lb (05/2018) - 28.5% loss x5 mos. (severe) Malnutrition Assessment: Nutritional Supplementals/Nourishments - Will Interventions send Vanjerri Ensure Enlive (350kcal, 20g prot/ serv) at B, L, D daily to optimize kcal/prot intake; will monitor acceptance/tolerance. Texture Modifications - Pt receiving pureed textures; will monitor tolerance and recommend FLIGHT DISPATCHER eval as indicated. GI Related - Recommend giving bowel meds PRN as indicated; will monitor GI s/sx for impact on intake. Malnutrition Assessment: Goals 1) Pt will tolerate least restrictive dietary textures w/o difficulty chewing/swallowing 2) Adequate po intake to replete lean body mass and hydration status 3) Maintain fluid/electrolyte balance w/ adequate po intake 4) Improve bowel regularity w/ adequate po intake and bowel meds PRN w/o exac of diarrhea/ constipation Result Diagrams: 11/16/18 08:26 11/16/18 08:26 Assess/Plan/Problems-Billing Ms Matamoros is a 68 yo F with a h/o small cell lung ca who presented to the ER after her sister found her poorly responsive on the floor and ultimately admitted to overdosing on ativan. - Patient Problems (1) Benzodiazepine (tranquilizer) overdose Current Visit: Yes Status: Acute Code(s): T42.4X1A - POISONING BY BENZODIAZEPINES, ACCIDENTAL, INIT SNOMED Code(s): 874932771 Comment: Pt no longer somnolent. She remains on continuous pulse oximetry and EtCO2 monitoring. She no longer appears to need supplemental O2. Plan on transfer to [facility] this afternoon. (2) Depression Current Visit: Yes Status: Acute Code(s): F32.9 - MAJOR DEPRESSIVE DISORDER , SINGLE EPISODE, UNSPECIFIED SNOMED Code(s): 50027530 Comment: Restarted on lexapro. Hold ativan. (3) Small cell lung cancer Current Visit: Yes Status: Acute Code(s): C34.90 - MALIGNANT NEOPLASM OF UNSP PART OF UNSP BRONCHUS OR LUNG SNOMED Code(s): 129077607 Comment: Management per Dr. Rodriguez. (4) Radiation esophagitis Current Visit: Yes Status: Acute Code(s): K20.8 - OTHER ESOPHAGITIS SNOMED Code(s): 782450158 Comment: Continue PPI. (5) DVT prophylaxis Current Visit: Yes Status: Acute Code(s): Z29.9 - ENCOUNTER FOR PROPHYLACTIC MEASURES, UNSPECIFIED SNOMED Code(s): 002646395 Comment: ambulation (6) Full code status Current Visit: Yes Status: Acute Code(s): Z78.9 - OTHER SPECIFIED HEALTH STATUS SNOMED Code(s): 510638627
--- NOTE | 2018-11-17 14:59 | CONS ---
CONSULTATION REPORT/PSYCHIATRIC HISTORY AND PHYSICAL: DATE OF ADMISSION: 11/16/18 DATE OF CONSULT: 11/17/18 ATTENDING PHYSICIAN: Dr. Lauren Ramirez. CONSULTING PHYSICIAN: Dr. Jaylen Cox. REASON FOR CONSULT: Overdose. SUBJECTIVE HISTORY: Ms. Matamoros is a 68-year-old white female with a history of small cell lung cancer first diagnosed in May of this year who has been undergoing chemotherapy, who was brought to the hospital via EMS after being discovered on the bathroom floor at her sister's residence where she herself currently resides following an intentional overdose on several tablets of lorazepam. The patient is still somewhat drowsy and I did rely on her daughter, Meagan, for a great deal of history. What the patient is reporting is that she had a routine scan on 11/13/18, and she had a followup appointment scheduled for 11/16/18, in which she would discuss the findings with her oncologist, Dr. Rodriguez. On 11/15/18, she was extremely anxious about hearing the results, fearing the worst. She is quoted as saying "I was so scared, I was petrified; I didn't think I even stood a chance; I didn't want to hurt myself; I just wanted to end the fear." The patient states that she started taking extra tablets of lorazepam in an effort to reduce her anxiety. At some point, she has no memory of what followed and was later discovered by her sister in the bathroom. The patient denies symptoms of depression or any history of psychosis or alexandr; however, she does endorse significant anxiety specifically around the diagnosis of cancer, having had several first-degree relatives suffer from cancer and as a result. When I spoke to her daughter, Meagan Rhodes notes that the patient actually has been depressed and that this has gotten worse over the last month. Although she quit cigarettes when she got her diagnosis in May , the daughter is not certain whether the patient has been cheating on this and smoking cigarettes secretively. They feel that she has been overutilizing her lorazepam. I subsequently spoke with the oncology attending, physician recovery assistant, Marcus Jones, who indicates that the scans demonstrated that the patient is essentially cancer-free at this point. PSYCHIATRIC HISTORY: The patient has expressed suicidal ideations in the past according to her daughter; however, she has never acted on it. She has no history of psychiatric hospitalization. She was started by her primary care doctor, Dr. Bergman, at the [facility] on a trial of escitalopram which has been subsequently increased to 30 mg daily. She also receives lorazepam from the [facility]. The patient denies any history of abuse or neglect. She denies any history of traumatic brain injury in the past. SUBSTANCE ABUSE HISTORY: Negative for alcohol or illicit drugs; however, she quit smoking 2 packs a day roughly in May of this year when she got her lung cancer diagnosis. PAST MEDICAL HISTORY: Significant for small cell lung cancer, status post chemotherapy. PAST SURGICAL HISTORY: She has had a cholecystectomy and a tubal ligation in the past. FAMILY HISTORY: Significant for a brother with heroin abuse, 1 sister who had an overdose attempt in the past while similarly struggling with cancer. There is no history of successful suicides in the family. SOCIAL HISTORY: The patient was born and raised here in [place] to an intact family. She is the fifth out of 7 total children. She was once and approximately 35 years ago, having never remarried. The patient was able to graduate high school and for a long time was a business operations specialist. She is currently retired and living on a pension as well as social security income. Currently, she is living with a sister, who is handicapped and requires in-home care. The patient was never in the . She is neither shinto nor spiritual. She has no history of significant legal problems. She has 2 children who are both daughters, who are directly involved in her care. MENTAL STATUS EXAM: The patient is a middle-aged white female who looks slightly older than her stated age. She is lying in bed covered with blankets. She has short hair, fair grooming. She makes good eye contact. She has a nasal cannula in place. Speech is slow and soft, but easy to understand. Mood appears to be anxious with a corresponding anxious affect. Thought process is linear and goal directed. Thought content is significant for her interest in her cancer prognosis. She is denying suicidal or homicidal ideations at this time. She denies auditory or visual hallucinations. Insight and judgment are fair given her willingness to come to the behavioral science unit. Cognitively , she is awake and alert, but somewhat lethargic. DIAGNOSES: As follows: [place] I: Adjustment disorder with anxiety. [place] II: Deferred. IMPRESSION: The patient is a 68-year-old white female with a history of treatment responsive small cell lung cancer who was brought to the hospital via EMS after being discovered passed out in her sister's bathroom following an intentional overdose on lorazepam. The patient is insisting that this was not suicidal in nature, but that she simply wanted to get control of her fear and anxiety about her pending appointment with Oncology, in which she would discover the results of her imaging tests. She is relieved to hear that the tests indicate that she is cancer- free and she states that her anxiety is improved by virtue of this. Nonetheless, both of her daughters feel that she is not coping well with her cancer diagnosis and they do not feel that the strategies to relieve her anxiety have been particularly effective up until this point and they do not feel that she would be safe going home directly from the hospital from the inpatient medical setting. The patient at this time understands the gravity of her overdose and she was willing to sign in on a voluntary basis in order to come to the behavioral science unit for further care. RECOMMENDATIONS TO PRIMARY TEAM: Psychiatry recommends that Ms. Matamoros be left on one-to-one while she awaits transfer to the behavioral science unit. There, we will take a look at her medications and perhaps add adjunctive medication to escitalopram. I think that lorazepam is problematic and we will likely replace this with a noncontrolled alternative. While she is on our unit , she is certainly going to be encouraged to avail herself of all inpatient milieu treatments including group and individual psychotherapies. We will be involving her daughters in the discharge planning process and we will coordinate care with [facility] as well as the [facility]. [id number]/[facility] #: [id number] GIO
[2018-11-17] MEDS ORDERED: Piperacillin/Tazobac ADVAN(*) 3.375 GM in NS 0.9% 100 ML* 100 ML IVPB ONE (16:00)
[2018-11-17] MEDS ORDERED: Zosyn per Pharmacy* NOTE FOLLOW UP SCH (16:00)
[2018-11-17] MEDS: Enoxaparin(*) 40 MG/0.4 ML SYR SUBCUT SCH (16:25)
[2018-11-17 17:33] LABS: Hematocrit 38 % (35-47); Hemoglobin 12.9 g/dL (12.0-16.0); Mean Corpuscular HGB Conc 34 g/dL (31-36); Mean Corpuscular Hemoglobin 33 pg (27-31); Mean Corpuscular Volume 99 fL (80-97); Mean Platelet Volume 6.8 fL (7.4-10.4); Platelet Count 176 10^3/uL (150-450); Red Blood Count 3.88 10^6 /uL (3.70-4.87); Red Cell Distribution Width 16 % (10-15); White Blood Count 7.9 10^3/uL (3.5-10.8)
[2018-11-17] MEDS ORDERED: Ondansetron INJ* 2 MG/ML VIAL IV PRN (17:39)
[2018-11-17] MEDS: fentaNYL Patch Check Q Shift 1 NOTE FOLLOW UP SCH (20:05)
--- NOTE | 2018-11-17 20:11 | PN ---
Progress Note - Progress Note Date of Service: 11/17/18 SOAP: Subjective: [Swapna was admitted yesterday after lorazepam overdose with unclear intention. She reports she was very anxious about the results of her restaging scans and was feeling hopeless. ] Objective: [ Vital Signs: Temp Pulse Resp BP Pulse Ox 99.8 F 134 20 146/78 100 11/17/18 15:25 11/17/18 15:25 11/17/18 15:25 11/17/18 15:25 11/17/18 15:25 Albuterol (Ventolin Hfa Inhaler*) 2 puff INH Q4H PRN PRN Reason: SHORTNESS OF BREATH Enoxaparin Sodium (Lovenox(*)) 40 mg SUBCUT Q24H [facility] Last Admin: 11/17/18 16:25 Dose: 40 mg Escitalopram Oxalate (Lexapro *) 30 mg PO DAILY [facility] Fentanyl (Duragesic Patch 12 Mcg/Hr *) 12 mcg TRANSDERM Q72HR [facility] Fluticasone Propionate (Flonase Nasal [place] 50mcg*) 2 spray BOTH NARES DAILY [facility] Last Admin: 11/17/18 08:54 Dose: 2 spray Heparin Sodium (Porcine) (Heparin Flush Port (Ivad)) 0 ml FLUSH DAILY [facility] Last Admin: 11/17/18 11:52 Dose: Not Given Hydroxyzine HCl (Atarax Tab*) 50 mg PO Q6H PRN PRN Reason: ANXIETY Piperacillin Sod/Tazobactam (Sod 3.375 gm/ Sodium Chloride) 100 mls @ 25 mls/ hr IVPB Q8H [facility] Magnesium Oxide (Magox 400 Tab*) 400 mg PO BID [facility] Last Admin: 11/17/18 08:54 Dose: 400 mg Ondansetron HCl (Zofran Inj*) 4 mg IV Q6H PRN PRN Reason: NAUSEA Pantoprazole Sodium (Protonix Tab*) 40 mg PO DAILY [facility]; Protocol Last Admin: 11/17/18 08:54 Dose: 40 mg Pharmacy Consult (Zosyn Per Pharmacy*) 1 note FOLLOW UP .ZOSYN PER PHARMACY [facility] Pharmacy Profile Note (Fentanyl Patch Check Q Shift) 1 note FOLLOW UP 0700, 1900 [facility] Laboratory Results - last 24 hr 11/17/18 11/17/18 17:23 17:24 WBC 7.9 RBC 3.88 Hgb 12.9 Hct 38 MCV 99 H MCH 33 H MCHC 34 RDW 16 H Plt Count 176 MPV 6.8 L Lactic Acid 1.4 Exam: Gen: Somewhat lethargic appearing 68 yo female in NAD, accompanied by female family member Psych: alert, oriented, tearful] Assessment: [This is a 68 yo female who completed treatment for limited stage small cell lung cancer several months ago who was found by her sister following a lorazepam overdose prompted by severe anxiety over her cancer prognosis.] Plan: [1. Lorazepam overdose - intention is unclear but she has a long standing h/o anxiety and depression - psychiatry recommends admission to [facility] for medication management 2. Small cell lung cancer - s/p concurrent chemotherapy/radiation with multiple infectious complications and severe esophagitis now several months out from completing therapy - restaging scans reviewed in detail which show one area in the apex of the R lung which appears improved over prior scans and one new lung lesion which is quite small and outside of prior radiation field, area of prior bulky disease within the mediastinum appears greatly improved. - scans were reviewed with patient in detail - she has no evidence of active disease at this time, but new RUL lesion will be followed closely at this time, it is unclear whether this represents inflamation v malignancy] Dispo: oncology team will be available for support as necessary, additional discharge planning per primary medicine and psychiatry teams
[2018-11-17] MEDS ORDERED: Acetaminophen TAB* 325 MG PO PRN (20:46)
[2018-11-17] MEDS: NS 0.9% 1000 ML** 2,000 ML IV ONE ×2 (21:03→22:07)
[2018-11-17] MEDS: ZOSYN 3.375 GM Q8H per EXTENDED INFUSION IVPB SCH ×2 (21:06)
[2018-11-17 22:48] LABS: Urine Appearance Turbid; Urine Bacteria Absent (Absent); Urine Bilirubin Negative (Negative); Urine Blood 2+ (Negative); Urine Color Yellow; Urine Glucose Negative (Negative); Urine Ketones Trace (Negative); Urine Nitrite Negative (Negative); Urine Protein 1+(30 mg/dL) (Negative); Urine Red Blood Cell 3+(>10/hpf) (Absent); Urine Specific Gravity 1.013 (1.010-1.030); Urine Urobilinogen Negative (Negative); Urine White Blood Cell 3+(>20/hpf) (Absent)
[2018-11-18] MEDS ORDERED: NS 0.9% 1000 ML** 1,000 ML IV ONE (01:15)
[2018-11-18 01:46] LABS: ABS Lymphocytes 0.3 10^3/ul (1.0-4.8); ABS Monocytes 0.3 10^3/ul (0-0.8); ABS Neutrophils 6.2 10^3/ul (1.5-7.7); Eosinophil % 0.2 %; Hematocrit 32 % (35-47); Hemoglobin 10.6 g/dL (12.0-16.0); Lymphocyte % 4.3 %; Mean Corpuscular HGB Conc 34 g/dL (31-36); Mean Corpuscular Hemoglobin 33 pg (27-31); Mean Corpuscular Volume 99 fL (80-97); Mean Platelet Volume 7.2 fL (7.4-10.4); Platelet Count 155 10^3/uL (150-450); Red Blood Count 3.19 10^6 /uL (3.70-4.87); Red Cell Distribution Width 16 % (10-15); White Blood Count 6.9 10^3/uL (3.5-10.8)
[2018-11-18 01:57] LABS: Albumin/Globulin Ratio 1.2 (1-3); BUN/Creatinine Ratio 13.5 (8-20); Calcium 8.6 mg/dL (8.6-10.3); EGFR African American 142.3 (>60); EGFR Non-African American 117.6 (>60); Globulin 2.5 g/dL (2-4); Potassium 3.6 mmol/L (3.5-5.0); Total Bilirubin 0.5 mg/dL (0.2-1.0); Total Protein 5.5 g/dL (6.4-8.9)
[2018-11-18] MEDS: ZOSYN 3.375 GM Q8H per EXTENDED INFUSION IVPB SCH ×4 (05:24→14:42)
[2018-11-18 05:55] LABS: HDL Cholesterol 31.7 mg/dL
[2018-11-18] MEDS: fentaNYL Patch Check Q Shift 1 NOTE FOLLOW UP SCH ×2 (09:10→21:56)
[2018-11-18] MEDS: Pantoprazole TAB * 40 MG TAB PO SCH (09:35)
[2018-11-18] MEDS: Magnesium Oxide TAB* 400 MG PO SCH ×2 (09:35→21:26)
[2018-11-18] MEDS: Escitalopram * 10 MG TAB PO SCH (09:38)
[2018-11-18] MEDS: Fluticasone NASAL SPRAY 50MCG* 16 gm SPRAY BTL BOTH NARES SCH ×2 (09:40→09:56)
--- NOTE | 2018-11-18 13:59 | PN ---
Subjective Date of Service: 11/18/18 Interval History: Pt is feeling ok currently. She denies any SOB. No cough or sputum production. She has not really been out of bed much. Objective Active Medications: Acetaminophen (Tylenol Tab*) 650 mg PO Q6H PRN PRN Reason: PAIN-MILD/TEMP >/= 100.4 Last Admin: 11/17/18 21:13 Dose: 650 mg Albuterol (Ventolin Hfa Inhaler*) 2 puff INH Q4H PRN PRN Reason: SHORTNESS OF BREATH Enoxaparin Sodium (Lovenox(*)) 40 mg SUBCUT Q24H [facility] Last Admin: 11/17/18 16:25 Dose: 40 mg Escitalopram Oxalate (Lexapro *) 30 mg PO DAILY [facility] Last Admin: 11/18/18 09:38 Dose: 30 mg Fentanyl (Duragesic Patch 12 Mcg/Hr *) 12 mcg TRANSDERM Q72HR [facility] Fluticasone Propionate (Flonase Nasal [place] 50mcg*) 2 spray BOTH NARES DAILY [facility] Last Admin: 11/18/18 09:56 Dose: Not Given Heparin Sodium (Porcine) (Heparin Flush Port (Ivad)) 0 ml FLUSH DAILY [facility] Last Admin: 11/18/18 11:01 Dose: 5 ml Hydroxyzine HCl (Atarax Tab*) 50 mg PO Q6H PRN PRN Reason: ANXIETY Piperacillin Sod/Tazobactam (Sod 3.375 gm/ Sodium Chloride) 100 mls @ 25 mls/ hr IVPB Q8H [facility] Last Admin: 11/18/18 05:24 Dose: 25 mls/hr Magnesium Oxide (Magox 400 Tab*) 400 mg PO BID [facility] Last Admin: 11/18/18 09:35 Dose: 400 mg Ondansetron HCl (Zofran Inj*) 4 mg IV Q6H PRN PRN Reason: NAUSEA Pantoprazole Sodium (Protonix Tab*) 40 mg PO DAILY [facility]; Protocol Last Admin: 11/18/18 09:35 Dose: 40 mg Pharmacy Consult (Zosyn Per Pharmacy*) 1 note FOLLOW UP .ZOSYN PER PHARMACY [facility] Pharmacy Profile Note (Fentanyl Patch Check Q Shift) 1 note FOLLOW UP 0700, 1900 [facility] Last Admin: 11/18/18 09:10 Dose: Not Given Vital Signs - 8 hr 11/18/18 07:00 Temperature 97.0 F Pulse Rate 86 Respiratory 18 Rate Blood Pressure 84/54 (mmHg) O2 Sat by Pulse 96 Oximetry Oxygen Devices in Use Now: Nasal Cannula Appearance: Middle aged chronically ill appearing female sitting up in bed, NAD Eyes: No Scleral Icterus Ears/Nose/Mouth/Throat: Mucous Membranes Moist Respiratory: Symmetrical Chest Expansion and Respiratory Effort, Clear to Auscultation - few LLL crackles Cardiovascular: NL Sounds; No Murmurs; No JVD, RRR, No Edema Abdominal: NL Sounds; No Tenderness; No Distention Extremities: No Clubbing, Cyanosis Skin: No Nodules or Sclerosis Neurological: Alert and Oriented x 3 - Nutrition: Malnutrition Diagnosis/Plan Malnutrition Assessment by Registered Dietitian: Malnutrition Assessment Clinical Characteristics Chronic,Severe Malnutrition Assessment: Severe Muscle Wasting - Temporal muscle Criteria Inadequate Oral Intake - Pt reports poor appetite/intake - Anticipate meeting <75% of nutrient needs >1 mo. Unintentional Wt loss - Pt reports unintentional wt loss - current wt 120lb, prev wt on record 168lb (05/2018) - 28.5% loss x5 mos. (severe) Malnutrition Assessment: Nutritional Supplementals/Nourishments - Will Interventions send Vanjerri Ensure Enlive (350kcal, 20g prot/ serv) at B, L, D daily to optimize kcal/prot intake; will monitor acceptance/tolerance. Texture Modifications - Pt receiving pureed textures; will monitor tolerance and recommend IN SERVICE COORDINATOR eval as indicated. GI Related - Recommend giving bowel meds PRN as indicated; will monitor GI s/sx for impact on intake. Malnutrition Assessment: Goals 1) Pt will tolerate least restrictive dietary textures w/o difficulty chewing/swallowing 2) Adequate po intake to replete lean body mass and hydration status 3) Maintain fluid/electrolyte balance w/ adequate po intake 4) Improve bowel regularity w/ adequate po intake and bowel meds PRN w/o exac of diarrhea/ constipation Result Diagrams: 11/18/18 01:10 11/18/18 01:10 Assess/Plan/Problems-Billing Ms Matamoros is a 68 yo F with a h/o small cell lung ca who presented to the ER after her sister found her poorly responsive on the floor and ultimately admitted to overdosing on ativan. - Patient Problems (1) Aspiration pneumonia Current Visit: Yes Status: Acute Code(s): J69.0 - PNEUMONITIS DUE TO INHALATION OF FOOD AND VOMIT SNOMED Code(s): 334593905 Comment: Yesterday as I was going to transfer the patient to the MHU she was noted to be persistently tachycardic and with a low grade temp. CXR shows possible LLL infiltrate. I started zosyn for presumed aspiration pnuemonia. I suspect she may have aspirated while somnolent. Will change from zosyn as pt now has mild rash to right upper chest wall. Start levaquin and clindamycin. (2) Benzodiazepine (tranquilizer) overdose Current Visit: Yes Status: Acute Code(s): T42.4X1A - POISONING BY BENZODIAZEPINES, ACCIDENTAL, INIT SNOMED Code(s): 774703343 Comment: Pt no longer somnolent. Pt went back on O2 last night. Try to wean off O2 again. Transfer to MHU today as she is now stable. (3) Depression Current Visit: Yes Status: Acute Code(s): F32.9 - MAJOR DEPRESSIVE DISORDER , SINGLE EPISODE, UNSPECIFIED SNOMED Code(s): 31590236 Comment: Restarted on lexapro. Hold ativan. (4) Small cell lung cancer Current Visit: Yes Status: Acute Code(s): C34.90 - MALIGNANT NEOPLASM OF UNSP PART OF UNSP BRONCHUS OR LUNG SNOMED Code(s): 165793083 Comment: Management per Dr. Rodriguez. (5) Radiation esophagitis Current Visit: Yes Status: Acute Code(s): K20.8 - OTHER ESOPHAGITIS SNOMED Code(s): 629254712 Comment: Continue PPI. (6) DVT prophylaxis Current Visit: Yes Status: Acute Code(s): Z29.9 - ENCOUNTER FOR PROPHYLACTIC MEASURES, UNSPECIFIED SNOMED Code(s): 544498889 Comment: ambulation (7) Full code status Current Visit: Yes Status: Acute Code(s): Z78.9 - OTHER SPECIFIED HEALTH STATUS SNOMED Code(s): 114908028
[2018-11-18] MEDS: Hydrocortisone 1% CREAM* 30 GM TUBE TOPICAL PRN (15:31)
--- NOTE | 2018-11-18 16:37 | CONSULT ---
Identification - Patient Identification Reason for Psychiatric Consultation: Patient Distress -: Patient is a 68 year old, F admitted on 11/17/18. - MHU Identification Employment Status: Disabled Hx Psychiatric Hospitalization: No History - Objective HPI: Swapna was seen for psychiatric follow up on the [address] [place] [address] unit this morning before transfer to the [facility]. She was slated for transfer late yesterday, however , she developed tachycardia and was kept on the Hospitalist service. She's subsequently been diagnosed with aspiration pneumonia and started on antibiotic therapy. The patient has poor memory and cannot recall speaking with this clinician yesterday. She also cannot recall speaking with oncology attending PHILOMENA Mark, despite that clinician informing her yesterday that she is cancer free. The patient thinks that the year is 1979 and that the facility is [facility], but otherwise she is oriented. She continues to deny SI. Exam Appearance: Healthy Appearing Hygiene: Normal Grooming: Well Kept Psychomotor Activities: Abnormal-Decreased Exhibits Abnormal Movement: No Attitude and Relatedness: Cooperative Eye Contact: Fair - Speech Quality: Unpressured Latencies: Long Quantity: Terse Patient's Decription of Mood: "Okay" Observed Affect: Fair Affect Consistent with: Euthymia Patient's Thought Process: Coherent Thought Content: No Passive Wish, No Suicidal Planning, No Homicidal Ideation, No Paranoid Ideation Experiencing Hallucinations: No, Sensorium is Clear Type of Hallucinations: Visual: No, Auditory: No, Command: No Level of Consciousness: Alert Orientation: Yes Intact, Yes Orientated to Time, Yes Orientated to Place, Yes Orientated to Person Impulse Control: Tenuous Insight and Judgement: Fair Impression - Impression Clinical Impression: 68 y.o. , white female with a history of small cell lung cancer, status post chemotherapy and in current remission, admitted to the medical service following an intentional overdose on prescribed lorazepam in an effort to quell her severe anxiety about the status of her disease. Inpatient DSM-V Dx: F43.22 Merits Inpatient Hospitalization: Yes BSU: Problem List - Patient Problems (1) Adjustment disorder with anxiety Current Visit: Yes Status: Acute Priority: High Code(s): F43.22 - ADJUSTMENT DISORDER WITH ANXIETY SNOMED Code(s): 66107602 Plan - Treatment Plan Treatment Plan: We will transfer the patient to the BSU once medically cleared to do so. Will resume escitalopram 30mg PO qday and add mirtazapine 15mg PO qhs as adjunctive therapy. Will offer hydroxyzine for prn anxiety management. Psychiatry is ready to assume care on the BSU. Continued Medication Management: Different Medication Medications: Current Medications Acetaminophen (Tylenol Tab*) 650 mg PO Q6H PRN PRN Reason: PAIN-MILD/TEMP >/= 100.4 Last Admin: 11/17/18 21:13 Dose: 650 mg Albuterol (Ventolin Hfa Inhaler*) 2 puff INH Q4H PRN PRN Reason: SHORTNESS OF BREATH Clindamycin HCl (Cleocin Cap*) 300 mg PO TID [facility] Enoxaparin Sodium (Lovenox(*)) 40 mg SUBCUT Q24H [facility] Last Admin: 11/17/18 16:25 Dose: 40 mg Escitalopram Oxalate (Lexapro *) 30 mg PO DAILY [facility] Last Admin: 11/18/18 09:38 Dose: 30 mg Fentanyl (Duragesic Patch 12 Mcg/Hr *) 12 mcg TRANSDERM Q72HR [facility] Fluticasone Propionate (Flonase Nasal [place] 50mcg*) 2 spray BOTH NARES DAILY [facility] Last Admin: 11/18/18 09:56 Dose: Not Given Heparin Sodium (Porcine) (Heparin Flush Port (Ivad)) 0 ml FLUSH DAILY [facility] Last Admin: 11/18/18 15:31 Dose: 5 ml Hydrocortisone (Hytone Cream 1%*) 1 applic TOPICAL TID PRN PRN Reason: itching Last Admin: 11/18/18 15:31 Dose: 1 applic Hydroxyzine HCl (Atarax Tab*) 50 mg PO Q6H PRN PRN Reason: ANXIETY Levofloxacin (Levaquin Tab*) 500 mg PO Q24H [facility]; Protocol Magnesium Oxide (Magox 400 Tab*) 400 mg PO BID [facility] Last Admin: 11/18/18 09:35 Dose: 400 mg Ondansetron HCl (Zofran Inj*) 4 mg IV Q6H PRN PRN Reason: NAUSEA Pantoprazole Sodium (Protonix Tab*) 40 mg PO DAILY [facility]; Protocol Last Admin: 11/18/18 09:35 Dose: 40 mg Pharmacy Profile Note (Fentanyl Patch Check Q Shift) 1 note FOLLOW UP 0700, 1900 [facility] Last Admin: 11/18/18 09:10 Dose: Not Given - Discharge Plan Discharge Plan: Inpatient Hospitalization
[2018-11-18] MEDS ORDERED: Clindamycin CAP* 150 MG PO SCH (21:00)
[2018-11-18] MEDS: Levofloxacin TAB* 500 MG PO SCH (21:26)
[2018-11-18] MEDS: Mirtazapine TAB* 15 MG PO SCH (21:26)
[2018-11-18] MEDS: Enoxaparin(*) 40 MG/0.4 ML SYR SUBCUT SCH (21:49)
[2018-11-18] MEDS: ORALSYR PO SCH (22:34)
[2018-11-18] MEDS: CLINDAMYCIN PO SCH (22:34)
[2018-11-19] MEDS: Escitalopram * 10 MG TAB PO SCH (08:53)
[2018-11-19] MEDS: Magnesium Oxide TAB* 400 MG PO SCH ×2 (08:53→22:39)
[2018-11-19] MEDS: fentaNYL Patch Check Q Shift 1 NOTE FOLLOW UP SCH (08:53)
[2018-11-19] MEDS: Pantoprazole TAB * 40 MG TAB PO SCH (08:54)
[2018-11-19] MEDS: ORALSYR PO SCH ×3 (08:54→22:37)
[2018-11-19] MEDS: CLINDAMYCIN PO SCH ×3 (08:54→22:37)
[2018-11-19] MEDS: Fluticasone NASAL SPRAY 50MCG* 16 gm SPRAY BTL BOTH NARES SCH (08:57)
--- NOTE | 2018-11-19 11:31 | PN ---
Subjective - Subjective Date of Service: 11/19/18 Service Type: [id number] Hosp care 15 min low complexity Subjective: Swapna did not sleep well last night due to complaints about the noise level here on the BSU. She is tolerating her medications well and denies pain. I spoke with OMAYRAA attending Immanuel Rodriguez who indicated that it is fine to discontinue her fentanyl patch. He indicated that her port does not require management such as heparin flushes. He will be seeing her on the unit for oncology follow up. The patient denies SI saying "I can't believe how dumb that was. To think I might have ended my life even though the scans were fine!" She continues to ambulate with difficulty and we have a wheelchair for her use on the unit. Objective - General Observations Appearance: Well Groomed Appears Stated Age: No Stature: WNL Posture: WNL Eye Contact: Average Behavior/Activity: WNL - Interaction Observations Attitude Towards Examiner: Cooperative Stated Mood: Anxious Affect: Restricted Speech Pattern/Tone: Clear, Appropriate Thought Process: Coherent Perception: WNL Thought Content: Preoccupation/Ruminations Hallucination Type: None Delusion Type: None - Cognitive Function Orientation: A&O x 4 Level of Consciousness: Awake Cognition: WNL Estimated Intelligence: Normal Insight: WNL Judgment Within Normal Limits: Yes - Medication Compliance Cooperative with Inpatient Medication Regimen: Yes - Group Participation Participates in Group Activities: Yes Assessment - Assessment Merits Inpatient Hospitalization: For Immediate Safety, For Stabilization Inpatient DSM-V Dx: F43.22 Clinical Impression: 68 y.o. , white female with a history of small cell lung cancer, status post chemotherapy and in current remission, transferred from the medical service following stabilization of an intentional overdose on prescribed lorazepam in an effort to quell her severe anxiety about the status of her disease. BSU: Problem List - Patient Problems (1) Adjustment disorder with anxiety Current Visit: Yes Status: Acute Priority: High Code(s): F43.22 - ADJUSTMENT DISORDER WITH ANXIETY SNOMED Code(s): 93182362 Plan - Plan Treatment Plan: Will have resumed escitalopram 30mg PO qday and added mirtazapine 15mg PO qhs as adjunctive therapy. Will offer hydroxyzine for prn anxiety management. Oncology will follow. Target discharge early next week depending on status. Continued Medication Management: Different Medication Medications: Current Medications Acetaminophen (Tylenol Tab*) 650 mg PO Q6H PRN PRN Reason: PAIN-MILD/TEMP >/= 100.4 Last Admin: 11/17/18 21:13 Dose: 650 mg Albuterol (Ventolin Hfa Inhaler*) 2 puff INH Q4H PRN PRN Reason: SHORTNESS OF BREATH Clindamycin Palmitate HCl (Cleocin Soln*) 300 mg PO TID [facility] Last Admin: 11/19/18 08:54 Dose: 300 mg Enoxaparin Sodium (Lovenox(*)) 40 mg SUBCUT Q24H [facility] Last Admin: 11/18/18 21:49 Dose: 40 mg Escitalopram Oxalate (Lexapro *) 30 mg PO DAILY [facility] Last Admin: 11/19/18 08:53 Dose: 30 mg Fluticasone Propionate (Flonase Nasal [place] 50mcg*) 2 spray BOTH NARES DAILY [facility] Last Admin: 11/19/18 08:57 Dose: Not Given Heparin Sodium (Porcine) (Heparin Flush Port (Ivad)) 0 ml FLUSH DAILY [facility] Last Admin: 11/18/18 15:31 Dose: 5 ml Hydrocortisone (Hytone Cream 1%*) 1 applic TOPICAL TID PRN PRN Reason: itching Last Admin: 11/18/18 15:31 Dose: 1 applic Hydroxyzine HCl (Atarax Tab*) 50 mg PO Q6H PRN PRN Reason: ANXIETY Levofloxacin (Levaquin Tab*) 500 mg PO Q24H [facility]; Protocol Last Admin: 11/18/18 21:26 Dose: 500 mg Magnesium Oxide (Magox 400 Tab*) 400 mg PO BID [facility] Last Admin: 11/19/18 08:53 Dose: 400 mg Mirtazapine (Remeron Tab*) 15 mg PO BEDTIME [facility] Last Admin: 11/18/18 21:26 Dose: 15 mg Ondansetron HCl (Zofran Inj*) 4 mg IV Q6H PRN PRN Reason: NAUSEA Pantoprazole Sodium (Protonix Tab*) 40 mg PO DAILY [facility]; Protocol Last Admin: 11/19/18 08:54 Dose: 40 mg - Discharge Plan Discharge Plan: Inpatient Hospitalization Lab Results - Lab Results Lab Results: 11/17/18 11/17/18 11/17/18 17:23 17:24 21:36 WBC 7.9 RBC 3.88 Hgb 12.9 Hct 38 MCV 99 H MCH 33 H MCHC 34 RDW 16 H Plt Count 176 MPV 6.8 L Neut % (Auto) Lymph % (Auto) [place] % (Auto) Eos % (Auto) Baso % (Auto) Absolute Neuts (auto) Absolute Lymphs (auto) Absolute Monos (auto) Absolute Eos (auto) Absolute Basos (auto) Absolute Nucleated RBC Nucleated RBC % Sodium Potassium Chloride Carbon Dioxide Anion Gap BUN Creatinine Est GFR ( Amer) Est GFR (Non-Af Amer) BUN/Creatinine Ratio Glucose Hemoglobin A1c Lactic Acid 1.4 Calcium Total Bilirubin AST ALT Alkaline Phosphatase Total Protein Albumin Globulin Albumin/Globulin Ratio Triglycerides Cholesterol LDL Cholesterol HDL Cholesterol Urine Color Yellow Urine Appearance Turbid Urine pH 7.0 Ur Specific [place] 1.013 Urine Protein 1+(30 mg/dl) A Urine Ketones Trace A Urine Blood 2+ A Urine Nitrate Negative Urine Bilirubin Negative Urine Urobilinogen Negative Ur Leukocyte Esterase 3+ A Urine WBC (Auto) 3+(>20/hpf) A Urine RBC (Auto) 3+(>10/hpf) A Urine Bacteria Absent Urine Glucose Negative 11/18/18 11/18/18 11/18/18 01:10 01:10 01:10 WBC 6.9 RBC 3.19 L Hgb 10.6 L Hct 32 L MCV 99 H MCH 33 H MCHC 34 RDW 16 H Plt Count 155 MPV 7.2 L Neut % (Auto) 90.5 Lymph % (Auto) 4.3 [place] % (Auto) 4.8 Eos % (Auto) 0.2 Baso % (Auto) 0.2 Absolute Neuts (auto) 6.2 Absolute Lymphs (auto) 0.3 L Absolute Monos (auto) 0.3 Absolute Eos (auto) 0.0 Absolute Basos (auto) 0.0 Absolute Nucleated RBC 0.0 Nucleated RBC % 0.0 Sodium 138 Potassium 3.6 Chloride 106 Carbon Dioxide 28 Anion Gap 4 BUN 7 Creatinine 0.52 Est GFR ( Amer) 142.3 Est GFR (Non-Af Amer) 117.6 BUN/Creatinine Ratio 13.5 Glucose 128 H Hemoglobin A1c Lactic Acid 0.8 Calcium 8.6 Total Bilirubin 0.50 AST 10 L ALT 8 Alkaline Phosphatase 67 Total Protein 5.5 L Albumin 3.0 L Globulin 2.5 Albumin/Globulin Ratio 1.2 Triglycerides Cholesterol LDL Cholesterol HDL Cholesterol Urine Color Urine Appearance Urine pH Ur Specific [place] Urine Protein Urine Ketones Urine Blood Urine Nitrate Urine Bilirubin Urine Urobilinogen Ur Leukocyte Esterase Urine WBC (Auto) Urine RBC (Auto) Urine Bacteria Urine Glucose 11/18/18 11/18/18 05:20 05:20 WBC RBC Hgb Hct MCV MCH MCHC RDW Plt Count MPV Neut % (Auto) Lymph % (Auto) [place] % (Auto) Eos % (Auto) Baso % (Auto) Absolute Neuts (auto) Absolute Lymphs (auto) Absolute Monos (auto) Absolute Eos (auto) Absolute Basos (auto) Absolute Nucleated RBC Nucleated RBC % Sodium Potassium Chloride Carbon Dioxide Anion Gap BUN Creatinine Est GFR ( Amer) Est GFR (Non-Af Amer) BUN/Creatinine Ratio Glucose Hemoglobin A1c 4.7 Lactic Acid Calcium Total Bilirubin AST ALT Alkaline Phosphatase Total Protein Albumin Globulin Albumin/Globulin Ratio Triglycerides 102 Cholesterol 157 LDL Cholesterol 105 HDL Cholesterol 31.7 Urine Color Urine Appearance Urine pH Ur Specific [place] Urine Protein Urine Ketones Urine Blood Urine Nitrate Urine Bilirubin Urine Urobilinogen Ur Leukocyte Esterase Urine WBC (Auto) Urine RBC (Auto) Urine Bacteria Urine Glucose
[2018-11-19] MEDS: Enoxaparin(*) 40 MG/0.4 ML SYR SUBCUT SCH (17:31)
[2018-11-19] MEDS: Nicotine PATCH 14 MG/24 HR* PATCH TRANSDERM SCH (17:34)
[2018-11-19] MEDS: Nicotine Patch Removal NOTE FOLLOW UP SCH (21:05)
[2018-11-19] MEDS: Levofloxacin TAB* 500 MG PO SCH (22:36)
[2018-11-19] MEDS: Mirtazapine TAB* 15 MG PO SCH (22:39)
[2018-11-20] MEDS ORDERED: fentaNYL PATCH 12 MCG/HR TRANSDERM SCH (09:00)
[2018-11-20] MEDS: Pantoprazole TAB * 40 MG TAB PO SCH (10:48)
[2018-11-20] MEDS: CLINDAMYCIN PO SCH ×3 (11:20→20:56)
[2018-11-20] MEDS: ORALSYR PO SCH ×3 (11:20→20:56)
[2018-11-20] MEDS: Magnesium Oxide TAB* 400 MG PO SCH ×2 (11:23→20:55)
[2018-11-20] MEDS: Escitalopram * 10 MG TAB PO SCH (11:23)
[2018-11-20] MEDS: Fluticasone NASAL SPRAY 50MCG* 16 gm SPRAY BTL BOTH NARES SCH (11:24)
[2018-11-20] MEDS: Nicotine PATCH 14 MG/24 HR* PATCH TRANSDERM SCH (11:42)
[2018-11-20] MEDS ORDERED: Polyethylene Glycol 3350* 17 GM PACKET PO PRN (14:20)
--- NOTE | 2018-11-20 14:26 | PN ---
Subjective - Subjective Date of Service: 11/20/18 Service Type: [id number] Hosp care 15 min low complexity Subjective: Swapna is far more awake and alert today, sitting up in bed and making good eye contact. She has limited memory of the last several days since her overdose but knows that she is now cancer free and recalls overdosing. "That was such a stupid thing to do. I was so afraid." Now that she is more alert she is encouraged to participate more in milieu programming, such as groups and taking her meals with peers. She is agreeable and asks to taken out to the milieu in her wheelchair. She complains of some lightheadedness and is encouraged to eat and drink and practice ambulating only assisted by staff. I understand that PT has been seeing her. She is tolerating mirtazapine well and is willing to pursue counseling after discharge. She continues to deny SI. Objective - General Observations Appearance: Neat Appears Stated Age: Yes Stature: WNL Posture: WNL Eye Contact: Average Behavior/Activity: WNL - Interaction Observations Attitude Towards Examiner: Cooperative Stated Mood: Anxious Affect: Restricted Speech Pattern/Tone: Clear, Appropriate, Normal Volume Thought Process: Coherent Perception: WNL Thought Content: WNL, Phobic Hallucination Type: None Delusion Type: None - Cognitive Function Orientation: A&O x 4 Level of Consciousness: Awake, Alert, Appropriate Cognition: WNL Estimated Intelligence: Normal Insight: WNL Judgment Within Normal Limits: Yes - Medication Compliance Cooperative with Inpatient Medication Regimen: Yes - Group Participation Participates in Group Activities: No Assessment - Assessment Merits Inpatient Hospitalization: For Immediate Safety, For Stabilization Inpatient DSM-V Dx: F43.22 Clinical Impression: 68 y.o. , white female with a history of small cell lung cancer, status post chemotherapy and in current remission, transferred from the medical service following stabilization of an intentional overdose on prescribed lorazepam in an effort to quell her severe anxiety about the status of her disease. BSU: Problem List - Patient Problems (1) Adjustment disorder with anxiety Current Visit: Yes Status: Acute Priority: High Code(s): F43.22 - ADJUSTMENT DISORDER WITH ANXIETY SNOMED Code(s): 92873446 Plan - Plan Treatment Plan: We have resumed escitalopram 30mg PO qday and added mirtazapine 15mg PO qhs as adjunctive therapy. Will offer hydroxyzine for prn anxiety management. Oncology is following. Target discharge early next week depending on status. Continued Medication Management: Different Medication Medications: Current Medications Acetaminophen (Tylenol Tab*) 650 mg PO Q6H PRN PRN Reason: PAIN-MILD/TEMP >/= 100.4 Last Admin: 11/17/18 21:13 Dose: 650 mg Albuterol (Ventolin Hfa Inhaler*) 2 puff INH Q4H PRN PRN Reason: SHORTNESS OF BREATH Clindamycin Palmitate HCl (Cleocin Soln*) 300 mg PO TID [facility] Last Admin: 11/20/18 14:13 Dose: 300 mg Enoxaparin Sodium (Lovenox(*)) 40 mg SUBCUT Q24H [facility] Last Admin: 11/19/18 17:31 Dose: 40 mg Escitalopram Oxalate (Lexapro *) 30 mg PO DAILY [facility] Last Admin: 11/20/18 11:23 Dose: 30 mg Fluticasone Propionate (Flonase Nasal [place] 50mcg*) 2 spray BOTH NARES DAILY [facility] Last Admin: 11/20/18 11:24 Dose: Not Given Heparin Sodium (Porcine) (Heparin Flush Port (Ivad)) 0 ml FLUSH DAILY [facility] Last Admin: 11/20/18 12:17 Dose: Not Given Hydrocortisone (Hytone Cream 1%*) 1 applic TOPICAL TID PRN PRN Reason: itching Last Admin: 11/18/18 15:31 Dose: 1 applic Hydroxyzine HCl (Atarax Tab*) 50 mg PO Q6H PRN PRN Reason: ANXIETY Levofloxacin (Levaquin Tab*) 500 mg PO Q24H [facility]; Protocol Last Admin: 11/19/18 22:36 Dose: 500 mg Magnesium Oxide (Magox 400 Tab*) 400 mg PO BID [facility] Last Admin: 11/20/18 11:23 Dose: 400 mg Mirtazapine (Remeron Tab*) 15 mg PO BEDTIME [facility] Last Admin: 11/19/18 22:39 Dose: 15 mg Nicotine (Nicotine Patch 14 Mg/24 Hr*) 1 patch TRANSDERM DAILY [facility] Last Admin: 11/20/18 11:42 Dose: Not Given Ondansetron HCl (Zofran Inj*) 4 mg IV Q6H PRN PRN Reason: NAUSEA Pantoprazole Sodium (Protonix Tab*) 40 mg PO DAILY [facility]; Protocol Last Admin: 11/20/18 10:48 Dose: 40 mg Pharmacy Profile Note (Nicotine Patch Removal Note*) 1 note FOLLOW UP 2100 [facility] Last Admin: 11/19/18 21:05 Dose: Not Given Polyethylene Glycol/Electrolytes (Miralax*) 17 gm PO DAILY PRN PRN Reason: CONSTIPATION Sucralfate (Carafate*) 1 gm PO BID [facility] - Discharge Plan Discharge Plan: Inpatient Hospitalization Lab Results - Lab Results Lab Results: 11/17/18 11/17/18 11/17/18 17:23 17:24 21:36 WBC 7.9 RBC 3.88 Hgb 12.9 Hct 38 MCV 99 H MCH 33 H MCHC 34 RDW 16 H Plt Count 176 MPV 6.8 L Neut % (Auto) Lymph % (Auto) [place] % (Auto) Eos % (Auto) Baso % (Auto) Absolute Neuts (auto) Absolute Lymphs (auto) Absolute Monos (auto) Absolute Eos (auto) Absolute Basos (auto) Absolute Nucleated RBC Nucleated RBC % Sodium Potassium Chloride Carbon Dioxide Anion Gap BUN Creatinine Est GFR ( Amer) Est GFR (Non-Af Amer) BUN/Creatinine Ratio Glucose Hemoglobin A1c Lactic Acid 1.4 Calcium Total Bilirubin AST ALT Alkaline Phosphatase Total Protein Albumin Globulin Albumin/Globulin Ratio Triglycerides Cholesterol LDL Cholesterol HDL Cholesterol Urine Color Yellow Urine Appearance Turbid Urine pH 7.0 Ur Specific [place] 1.013 Urine Protein 1+(30 mg/dl) A Urine Ketones Trace A Urine Blood 2+ A Urine Nitrate Negative Urine Bilirubin Negative Urine Urobilinogen Negative Ur Leukocyte Esterase 3+ A Urine WBC (Auto) 3+(>20/hpf) A Urine RBC (Auto) 3+(>10/hpf) A Urine Bacteria Absent Urine Glucose Negative 11/18/18 11/18/18 11/18/18 01:10 01:10 01:10 WBC 6.9 RBC 3.19 L Hgb 10.6 L Hct 32 L MCV 99 H MCH 33 H MCHC 34 RDW 16 H Plt Count 155 MPV 7.2 L Neut % (Auto) 90.5 Lymph % (Auto) 4.3 [place] % (Auto) 4.8 Eos % (Auto) 0.2 Baso % (Auto) 0.2 Absolute Neuts (auto) 6.2 Absolute Lymphs (auto) 0.3 L Absolute Monos (auto) 0.3 Absolute Eos (auto) 0.0 Absolute Basos (auto) 0.0 Absolute Nucleated RBC 0.0 Nucleated RBC % 0.0 Sodium 138 Potassium 3.6 Chloride 106 Carbon Dioxide 28 Anion Gap 4 BUN 7 Creatinine 0.52 Est GFR ( Amer) 142.3 Est GFR (Non-Af Amer) 117.6 BUN/Creatinine Ratio 13.5 Glucose 128 H Hemoglobin A1c Lactic Acid 0.8 Calcium 8.6 Total Bilirubin 0.50 AST 10 L ALT 8 Alkaline Phosphatase 67 Total Protein 5.5 L Albumin 3.0 L Globulin 2.5 Albumin/Globulin Ratio 1.2 Triglycerides Cholesterol LDL Cholesterol HDL Cholesterol Urine Color Urine Appearance Urine pH Ur Specific [place] Urine Protein Urine Ketones Urine Blood Urine Nitrate Urine Bilirubin Urine Urobilinogen Ur Leukocyte Esterase Urine WBC (Auto) Urine RBC (Auto) Urine Bacteria Urine Glucose 11/18/18 11/18/18 05:20 05:20 WBC RBC Hgb Hct MCV MCH MCHC RDW Plt Count MPV Neut % (Auto) Lymph % (Auto) [place] % (Auto) Eos % (Auto) Baso % (Auto) Absolute Neuts (auto) Absolute Lymphs (auto) Absolute Monos (auto) Absolute Eos (auto) Absolute Basos (auto) Absolute Nucleated RBC Nucleated RBC % Sodium Potassium Chloride Carbon Dioxide Anion Gap BUN Creatinine Est GFR ( Amer) Est GFR (Non-Af Amer) BUN/Creatinine Ratio Glucose Hemoglobin A1c 4.7 Lactic Acid Calcium Total Bilirubin AST ALT Alkaline Phosphatase Total Protein Albumin Globulin Albumin/Globulin Ratio Triglycerides 102 Cholesterol 157 LDL Cholesterol 105 HDL Cholesterol 31.7 Urine Color Urine Appearance Urine pH Ur Specific [place] Urine Protein Urine Ketones Urine Blood Urine Nitrate Urine Bilirubin Urine Urobilinogen Ur Leukocyte Esterase Urine WBC (Auto) Urine RBC (Auto) Urine Bacteria Urine Glucose
[2018-11-20] MEDS: Enoxaparin(*) 40 MG/0.4 ML SYR SUBCUT SCH (17:40)
[2018-11-20] MEDS: Mirtazapine TAB* 15 MG PO SCH (20:55)
[2018-11-20] MEDS: Levofloxacin TAB* 500 MG PO SCH (20:55)
[2018-11-20] MEDS: Sucralfate TAB* 1 GM PO SCH (20:56)
[2018-11-20] MEDS: Nicotine Patch Removal NOTE FOLLOW UP SCH (20:57)
--- NOTE | 2018-11-21 07:49 | PN ---
Progress Note - Progress Note Date of Service: 11/19/18 SOAP: ID: 68-year-old female with history of limited stage small cell lung cancer. Presented with large mediastinal mass and SVC compression. Treated with chemotherapy and mediastinal radiation, initially cis-newtok and etoposide and then carboplatinum and etoposide. She completed radiation + 6 cycles of chemotherapy. Course complicated by multiple grade 3 toxicities including electrolyte depletion, dysphagia. She has had refractory pain and anxiety through treatment. Has been on citalopram 30 mg daily, fentanyl patch, when necessary Ativan. Subjective: She is feeling better than admission. Still very weak, bedbound. She is trying to eat, appetite poor but swallowing better. No diarrhea. Still using mostly soft foods. Very regretful of suicide attempt. Her breathing has been fine, no chest pain, no back pain. Medications Acetaminophen (Tylenol Tab*) 650 mg PO Q6H PRN PRN Reason: PAIN-MILD/TEMP >/= 100.4 Last Admin: 11/17/18 21:13 Dose: 650 mg Albuterol (Ventolin Hfa Inhaler*) 2 puff INH Q4H PRN PRN Reason: SHORTNESS OF BREATH Clindamycin Palmitate HCl (Cleocin Soln*) 300 mg PO TID [facility] Last Admin: 11/20/18 20:56 Dose: 300 mg Enoxaparin Sodium (Lovenox(*)) 40 mg SUBCUT Q24H [facility] Last Admin: 11/20/18 17:40 Dose: 40 mg Escitalopram Oxalate (Lexapro *) 30 mg PO DAILY [facility] Last Admin: 11/20/18 11:23 Dose: 30 mg Fluticasone Propionate (Flonase Nasal [place] 50mcg*) 2 spray BOTH NARES DAILY [facility] Last Admin: 11/20/18 11:24 Dose: Not Given Heparin Sodium (Porcine) (Heparin Flush Port (Ivad)) 0 ml FLUSH DAILY [facility] Last Admin: 11/20/18 12:17 Dose: Not Given Hydrocortisone (Hytone Cream 1%*) 1 applic TOPICAL TID PRN PRN Reason: itching Last Admin: 11/18/18 15:31 Dose: 1 applic Hydroxyzine HCl (Atarax Tab*) 50 mg PO Q6H PRN PRN Reason: ANXIETY Levofloxacin (Levaquin Tab*) 500 mg PO Q24H [facility]; Protocol Last Admin: 11/20/18 20:55 Dose: 500 mg Magnesium Oxide (Magox 400 Tab*) 400 mg PO BID [facility] Last Admin: 11/20/18 20:55 Dose: 400 mg Mirtazapine (Remeron Tab*) 15 mg PO BEDTIME [facility] Last Admin: 11/20/18 20:55 Dose: 15 mg Nicotine (Nicotine Patch 14 Mg/24 Hr*) 1 patch TRANSDERM DAILY [facility] Last Admin: 11/20/18 11:42 Dose: Not Given Ondansetron HCl (Zofran Inj*) 4 mg IV Q6H PRN PRN Reason: NAUSEA Pantoprazole Sodium (Protonix Tab*) 40 mg PO DAILY [facility]; Protocol Last Admin: 11/20/18 10:48 Dose: 40 mg Pharmacy Profile Note (Nicotine Patch Removal Note*) 1 note FOLLOW UP 2100 [facility] Last Admin: 11/20/18 20:57 Dose: Not Given Polyethylene Glycol/Electrolytes (Miralax*) 17 gm PO DAILY PRN PRN Reason: CONSTIPATION Sucralfate (Carafate*) 1 gm PO BID [facility] Last Admin: 11/20/18 20:56 Dose: Not Given Objective: Vital Signs Temp Pulse Resp BP Pulse Ox 97.9 F 88 16 92/58 95 11/20/18 10:35 11/20/18 10:35 11/20/18 14:17 11/20/18 10:35 11/20/18 10:35 HEENT: OM dry, no lymphadenopathy, no venous congestion. Lungs: Clear to auscultation bilaterally, decreased breath sounds Heart: Regular rate and rhythm S1-S2 no murmur rubs or gallops Abdomen: Obese, nontender, no hepatosplenomegaly Extremities: Trace edema [place] skeletal: Moving very little, did not get up out of bed. Neurologic: Baseline mental status, alert and oriented 3, full exam otherwise deferred CT brain: No evidence of metastatic disease. CT chest abdomen and pelvis: No evidence of recurrent disease, resolution of mediastinal mass, 4 mm spiculated pulmonary nodule unchanged from diagnosis and unclear significance. Assessment: [] 68-year-old female with a history of limited stage small cell lung cancer status post chemotherapy and radiation. She has had a complete response to treatment but remains at high risk for relapse. He had an extremely difficult course with multiple toxicities and slow recovery. Now admitted after overdose of benzodiazepines. We reviewed CT scans today and gave her, again, the good news that she does not have recurrent disease. Also discussed that she is at risk for recurrence later on and that stress associated with her disease and repeat imaging will continue. Discussed need to modify her medication and continue to work on stress management, psychotherapy as an outpatient. Plan: 1. Reasonable to stop both fentanyl and Ativan. Pain was likely treatment related and I do not expect recurrence. Appreciate help from psychiatry and modifying her regimen for depression and anxiety. 2. Dysphagia is improved, encourage continued oral intake and expanding her diet. Can consider swallowing study if continued difficulty eating. Evaluate for esophageal stricture, otherwise would not expect a high aspiration risk based on prior therapy. 3. Agree with physical therapy, strengthening and ADLs. 4. Small cell lung cancer. No additional therapy required, do not recommend prophylactic cranial irradiation. Oncologic plan is repeat CT scans in 3 months. We will follow closely in house and when she is discharged from psychiatric unit.
[2018-11-21] MEDS: Fluticasone NASAL SPRAY 50MCG* 16 gm SPRAY BTL BOTH NARES SCH (09:32)
[2018-11-21] MEDS: CLINDAMYCIN PO SCH ×3 (09:32→20:49)
[2018-11-21] MEDS: ORALSYR PO SCH ×3 (09:32→20:49)
[2018-11-21] MEDS: Nicotine PATCH 14 MG/24 HR* PATCH TRANSDERM SCH ×2 (09:35→13:26)
[2018-11-21] MEDS: Sucralfate TAB* 1 GM PO SCH ×3 (09:36→20:48)
[2018-11-21] MEDS: Pantoprazole TAB * 40 MG TAB PO SCH (09:36)
[2018-11-21] MEDS: Escitalopram * 10 MG TAB PO SCH (09:36)
[2018-11-21] MEDS: Magnesium Oxide TAB* 400 MG PO SCH ×2 (09:36→20:47)
--- NOTE | 2018-11-21 11:45 | PN ---
Subjective - Subjective Date of Service: 11/21/18 Service Type: 21029 Hosp care 15 min low complexity Subjective: Swapna is in improved spirits today and much more active, visible on the unit and attending groups. She expresses concern over her handicapped sister, with whom she lives and typically provides care for. "I need to get back home to her...she needs me." Swapna continues to be remorseful for her overdose and blames her clouded thinking on the benzodiazepine drugs she was taking. She steadfastly denies SI and is tolerating the introduction of mirtazapine well. Objective - General Observations Appearance: Well Groomed Appears Stated Age: Yes Stature: WNL Posture: WNL Eye Contact: Average Behavior/Activity: WNL - Interaction Observations Attitude Towards Examiner: Cooperative Stated Mood: Euthymic Affect: Full Speech Pattern/Tone: Clear, Appropriate, Normal Volume Thought Process: Coherent Perception: WNL Hallucination Type: None Delusion Type: None - Cognitive Function Orientation: A&O x 4 Level of Consciousness: Awake, Alert, Appropriate Cognition: WNL Estimated Intelligence: Normal Insight: WNL Judgment Within Normal Limits: Yes - Medication Compliance Cooperative with Inpatient Medication Regimen: Yes - Group Participation Participates in Group Activities: Yes Assessment - Assessment Merits Inpatient Hospitalization: Consolidate Improvements, Pending Safe DC Plan Inpatient DSM-V Dx: F43.22 Clinical Impression: 68 y.o. , white female with a history of small cell lung cancer, status post chemotherapy and in current remission, transferred from the medical service following stabilization of an intentional overdose on prescribed lorazepam in an effort to quell her severe anxiety about the status of her disease. BSU: Problem List - Patient Problems (1) Adjustment disorder with anxiety Current Visit: Yes Status: Acute Priority: High Code(s): F43.22 - ADJUSTMENT DISORDER WITH ANXIETY SNOMED Code(s): 31982830 Plan - Plan Treatment Plan: We have resumed escitalopram 30mg PO qday and added mirtazapine 15mg PO qhs as adjunctive therapy. Will offer hydroxyzine for prn anxiety management. Oncology is following. Target discharge early next week depending on status. Continued Medication Management: Different Medication Medications: Current Medications Acetaminophen (Tylenol Tab*) 650 mg PO Q6H PRN PRN Reason: PAIN-MILD/TEMP >/= 100.4 Last Admin: 11/17/18 21:13 Dose: 650 mg Albuterol (Ventolin Hfa Inhaler*) 2 puff INH Q4H PRN PRN Reason: SHORTNESS OF BREATH Clindamycin Palmitate HCl (Cleocin Soln*) 300 mg PO TID [facility] Last Admin: 11/21/18 09:32 Dose: 300 mg Enoxaparin Sodium (Lovenox(*)) 40 mg SUBCUT Q24H [facility] Last Admin: 11/20/18 17:40 Dose: 40 mg Escitalopram Oxalate (Lexapro *) 30 mg PO DAILY [facility] Last Admin: 11/21/18 09:36 Dose: 30 mg Fluticasone Propionate (Flonase Nasal [place] 50mcg*) 2 spray BOTH NARES DAILY [facility] Last Admin: 11/21/18 09:32 Dose: Not Given Heparin Sodium (Porcine) (Heparin Flush Port (Ivad)) 0 ml FLUSH DAILY [facility] Last Admin: 11/21/18 09:39 Dose: Not Given Hydrocortisone (Hytone Cream 1%*) 1 applic TOPICAL TID PRN PRN Reason: itching Last Admin: 11/18/18 15:31 Dose: 1 applic Hydroxyzine HCl (Atarax Tab*) 50 mg PO Q6H PRN PRN Reason: ANXIETY Levofloxacin (Levaquin Tab*) 500 mg PO Q24H [facility]; Protocol Last Admin: 11/20/18 20:55 Dose: 500 mg Magnesium Oxide (Magox 400 Tab*) 400 mg PO BID [facility] Last Admin: 11/21/18 09:36 Dose: 400 mg Mirtazapine (Remeron Tab*) 15 mg PO BEDTIME [facility] Last Admin: 11/20/18 20:55 Dose: 15 mg Nicotine (Nicotine Patch 14 Mg/24 Hr*) 1 patch TRANSDERM DAILY [facility] Last Admin: 11/21/18 09:35 Dose: Not Given Ondansetron HCl (Zofran Inj*) 4 mg IV Q6H PRN PRN Reason: NAUSEA Pantoprazole Sodium (Protonix Tab*) 40 mg PO DAILY [facility]; Protocol Last Admin: 11/21/18 09:36 Dose: 40 mg Pharmacy Profile Note (Nicotine Patch Removal Note*) 1 note FOLLOW UP 2100 [facility] Last Admin: 11/20/18 20:57 Dose: Not Given Polyethylene Glycol/Electrolytes (Miralax*) 17 gm PO DAILY PRN PRN Reason: CONSTIPATION Sucralfate (Carafate*) 1 gm PO BID MERY Last Admin: 11/21/18 09:36 Dose: Not Given - Discharge Plan Discharge Plan: Inpatient Hospitalization
[2018-11-21] MEDS: Enoxaparin(*) 40 MG/0.4 ML SYR SUBCUT SCH (15:49)
[2018-11-21] MEDS ORDERED: Zolpidem TAB* 5 MG PO PRN (16:40)
[2018-11-21] MEDS: Levofloxacin TAB* 500 MG PO SCH (20:45)
[2018-11-21] MEDS: Mirtazapine TAB* 15 MG PO SCH (20:46)
[2018-11-21] MEDS: Nicotine Patch Removal NOTE FOLLOW UP SCH (21:44)
[2018-11-22] MEDS: hydrOXYzine HCL TAB* 50 MG PO PRN ×3 (00:20→23:07)
[2018-11-22] MEDS ORDERED: Zolpidem TAB* 5 MG PO ONE ×2 (01:40→02:10)
[2018-11-22] MEDS: Ondansetron TAB* 4 MG PO PRN ×2 (10:27→19:10)
[2018-11-22] MEDS: Escitalopram * 10 MG TAB PO SCH (10:52)
[2018-11-22] MEDS: Pantoprazole TAB * 40 MG TAB PO SCH (10:53)
[2018-11-22] MEDS: Magnesium Oxide TAB* 400 MG PO SCH ×2 (10:53→21:21)
[2018-11-22] MEDS: ORALSYR PO SCH ×3 (10:59→21:24)
[2018-11-22] MEDS: CLINDAMYCIN PO SCH ×3 (10:59→21:24)
[2018-11-22] MEDS: Fluticasone NASAL SPRAY 50MCG* 16 gm SPRAY BTL BOTH NARES SCH (11:02)
[2018-11-22] MEDS: Nicotine PATCH 14 MG/24 HR* PATCH TRANSDERM SCH (11:04)
[2018-11-22] MEDS ORDERED: Zolpidem TAB* 10 MG PO PRN (12:00)
--- NOTE | 2018-11-22 12:01 | PN ---
Progress Note - Progress Note Date of Service: 11/22/18 SOAP: Subjective: [] Had a great day yesterday, today feels more depressed. She has a mild upset stomach. She has been up and walking around, participating in group. Continues to be regretful about suicide attempt. Excited about possible discharge tomorrow. Insomnia. Worried about how to change her medicines after discharge. Acetaminophen (Tylenol Tab*) 650 mg PO Q6H PRN PRN Reason: PAIN-MILD/TEMP >/= 100.4 Last Admin: 11/17/18 21:13 Dose: 650 mg Albuterol (Ventolin Hfa Inhaler*) 2 puff INH Q4H PRN PRN Reason: SHORTNESS OF BREATH Clindamycin Palmitate HCl (Cleocin Soln*) 300 mg PO TID [facility] Last Admin: 11/22/18 10:59 Dose: 300 mg Enoxaparin Sodium (Lovenox(*)) 40 mg SUBCUT Q24H [facility] Last Admin: 11/21/18 15:49 Dose: 40 mg Escitalopram Oxalate (Lexapro *) 30 mg PO DAILY [facility] Last Admin: 11/22/18 10:52 Dose: 30 mg Fluticasone Propionate (Flonase Nasal [place] 50mcg*) 2 spray BOTH NARES DAILY [facility] Last Admin: 11/22/18 11:02 Dose: Not Given Heparin Sodium (Porcine) (Heparin Flush Port (Ivad)) 0 ml FLUSH DAILY [facility] Last Admin: 11/22/18 11:02 Dose: Not Given Hydrocortisone (Hytone Cream 1%*) 1 applic TOPICAL TID PRN PRN Reason: itching Last Admin: 11/18/18 15:31 Dose: 1 applic Hydroxyzine HCl (Atarax Tab*) 50 mg PO Q6H PRN PRN Reason: ANXIETY Last Admin: 11/22/18 00:20 Dose: 50 mg Levofloxacin (Levaquin Tab*) 500 mg PO Q24H [facility]; Protocol Last Admin: 11/21/18 20:45 Dose: 500 mg Magnesium Oxide (Magox 400 Tab*) 400 mg PO BID [facility] Last Admin: 11/22/18 10:53 Dose: 400 mg Mirtazapine (Remeron Tab*) 15 mg PO BEDTIME [facility] Last Admin: 11/21/18 20:46 Dose: 15 mg Nicotine (Nicotine Patch 14 Mg/24 Hr*) 1 patch TRANSDERM DAILY [facility] Last Admin: 11/22/18 11:04 Dose: 1 patch Ondansetron HCl (Zofran Tab*) 4 mg PO Q6H PRN PRN Reason: NAUSEA Last Admin: 11/22/18 10:27 Dose: 4 mg Pantoprazole Sodium (Protonix Tab*) 40 mg PO DAILY [facility]; Protocol Last Admin: 11/22/18 10:53 Dose: 40 mg Pharmacy Profile Note (Nicotine Patch Removal Note*) 1 note FOLLOW UP 2099 [facility] Last Admin: 11/21/18 21:44 Dose: 1 note Polyethylene Glycol/Electrolytes (Miralax*) 17 gm PO DAILY PRN PRN Reason: CONSTIPATION Sucralfate (Carafate*) 1 gm PO BID@629,2099 [facility] Zolpidem Tartrate (Ambien Tab*) 5 mg PO BEDTIME PRN PRN Reason: INSOMNIA Last Admin: 11/21/18 20:47 Dose: 5 mg Objective: []Vital Signs Temp Pulse Resp BP Pulse Ox 98.6 F 93 16 81/49 98 11/22/18 09:13 11/22/18 09:13 11/22/18 11:49 11/22/18 09:13 11/22/18 09:13 HEENT: OM dry, no lymphadenopathy, no venous congestion. Lungs: Clear to auscultation bilaterally, decreased breath sounds Heart: Regular rate and rhythm S1-S2 no murmur rubs or gallops Abdomen: Obese, nontender, no hepatosplenomegaly [place] skeletal: Moving very little, did not get up out of bed. Neurologic: Baseline mental status, alert and oriented 3, full exam otherwise deferred Assessment: [] 68-year-old female with a history of limited stage small cell lung cancer status post chemotherapy and radiation. She has had a complete response to treatment but remains at high risk for relapse. He had an extremely difficult course with multiple toxicities and slow recovery. Now admitted after overdose of benzodiazepines. Improved today, planning discharge tomorrow. New medications for depression and anxiety. Minimal pain. Plan: 1. We will plan discharge off all pain medication. 2. Dysphagia is improved. 3. FEN. Check magnesium and potassium, stop supplements if possible. No need for additional hydration. 3. Discussion will have psychiatric follow-up on discharge to adjust medications. She will talk about insomnia with the therapist. 4. Small cell lung cancer. No additional therapy required, do not recommend prophylactic cranial irradiation. Oncologic plan is repeat CT scans in 3 months. If discharged tomorrow will follow-up within 2 weeks with advanced practitioner.
[2018-11-22] MEDS ORDERED: QUEtiapine TAB* 25 MG PO PRN (14:29)
[2018-11-22] MEDS: Sucralfate TAB* 1 GM PO SCH ×3 (18:25→23:07)
[2018-11-22] MEDS: Enoxaparin(*) 40 MG/0.4 ML SYR SUBCUT SCH (18:28)
[2018-11-22] MEDS: Mirtazapine TAB* 15 MG PO SCH (21:19)
[2018-11-22] MEDS: Levofloxacin TAB* 500 MG PO SCH (21:22)
[2018-11-22] MEDS: Nicotine Patch Removal NOTE FOLLOW UP SCH (21:28)
[2018-11-22] MEDS: Hydrocortisone 1% CREAM* 30 GM TUBE TOPICAL PRN (22:52)
[2018-11-23] MEDS: Sucralfate TAB* 1 GM PO SCH (08:35)
[2018-11-23] MEDS: Fluticasone NASAL SPRAY 50MCG* 16 gm SPRAY BTL BOTH NARES SCH (08:38)
[2018-11-23] MEDS: Magnesium Oxide TAB* 400 MG PO SCH (08:40)
[2018-11-23] MEDS: Pantoprazole TAB * 40 MG TAB PO SCH (08:40)
[2018-11-23] MEDS: ORALSYR PO SCH ×2 (08:42→15:11)
[2018-11-23] MEDS: Escitalopram * 10 MG TAB PO SCH (08:42)
[2018-11-23] MEDS: CLINDAMYCIN PO SCH ×2 (08:42→15:11)
[2018-11-23] MEDS: Nicotine PATCH 14 MG/24 HR* PATCH TRANSDERM SCH (08:43)
[2018-11-23 10:46] VITALS: BP 101/66
[2018-11-23] MEDS: hydrOXYzine HCL TAB* 50 MG PO PRN (11:43)
--- NOTE | 2018-11-23 13:37 | DS ---
CC: Dr. Bergmna; Dr. Rodriguez DISCHARGE SUMMARY: DATE OF ADMISSION: 11/16/18 DATE OF DISCHARGE: 11/23/18 DISCHARGE DIAGNOSES: [place] I: Adjustment disorder with anxiety. [place] II: Deferred. CONDITION AT THE TIME OF DISCHARGE: Improved. The patient has steadfastly denied suicidal ideations throughout her medical and psychiatric hospitalization. She is tolerating her medications well and looking forward to returning home to her sister's house where she resides. The patient is calm, coop erative. She has been safe on all checks. She is appropriately agreeable with not only continuing m edication therapy for anxiety and depression, but also agreeable with following up with outpatient [facility] at the local [facility]. I have spoken with her daughter Murray marion, who is agreeable with the discharge plan and will be arriving this afternoon to transport Swapna home. The patient has done well here and is appropriately requesting discharge to a less restrictive setting. MENTAL STATUS EXAMINATION: The patient is an aging white female with short hair, who is dressed in p ajamas, wearing eye glasses. She is clean, well groomed, calm, cooperative, makes good eye contact. Speech has a normal rate, tone, and volume. Mood is slightly anxious with a corresponding anxious af fect. Thought process is linear, goal directed. Thought content is significant for her desire to re turn home to live with her sister, to see her cat, and to spend time with her family. She is denying suicidal or homicidal ideation. She denies auditory or visual hallucinations. Insight and judgment are fair given her willingness to follow up with mental health treatment in the outpatient setting. Cognitively, she is awake and alert with what would appear to be average intellect. DISCHARGE INSTRUCTIONS TO THE PATIENT: Part A: Medications: The patient will be on: 1. Nystatin powder applied topically b.i.d. 2. Prevacid 30 mg daily. 3. Flonase 50 mcg 2 sprays to both naris daily. 4. Carey 180 mg daily. 5. Epinephrine 0.3 mg IM p.r.n. for allergic reaction. 6. Flexeril 10 mg p.o. q.h.s. 7. Betamethasone dipropionate 0.05% topically b.i.d. 8. Ventolin inhaler 2 puffs inhaled every 4 hours p.r.n. for wheezing. 9. Reglan 10 mg p.o. t.i.d. 10. Carafate 10 mL p.o. with meals. 11. Mag-Ox 400 mg p.o. b.i.d. 12. Lexapro 30 mg p.o. daily. 13. Atarax 50 mg p.o. q.6h. p.r.n. for anxiety. 14. Ambien 5 mg at bedtime as needed for insomnia. 15. MiraLax 17 g p.o. daily. 16. Remeron 15 mg p.o. at bedtime. 17. Hydrocortisone 1% cream topically t.i.d. as needed for rash. Part B: Diet is regular. Part C: Activities as tolerated. The patient is a nonsmoker. There are no laboratory or diagnostic studies pending at the time of discharge. Part D: Followup care: The patient will have her intake tomorrow, 11/24/18 at 3:15 p.m. at the [facility] with a clinician named Meghan Lopez. In addition, she cortney l follow up with Dr. Ranjith Rodriguez at the [facility]. She will follow up w ith her primary care provider Dr. Bergman at the [facility]. Part E: Substance abuse followup is nonapplicable. Part F: Disposition: The patient will be going home to her sister's trailer where she lives. HOSPITAL COURSE: Part A: Reason for admission: The patient is a 68-year-old white female with a history of recent small cell lung cancer, first diagnosed in May of this year, who had be en undergoing chemotherapy, who was brought to the hospital via EMS [facility] her sister's trailer following an intentional overdose on multiple tablets of prescrib ed lorazepam. The patient was still somewhat drowsy when I initially met her, and I relied on her kathy Rhodes for a great deal of the history. What the patient was reporting is that she had a rout ine CAT scan on 11/13/18, to see what the status of her cancer was. She had a followup appoi ntment scheduled for 11/16/18, with Dr. Ranjith Rodriguez, her oncologist, in which they would dis cuss the results of those scans, but prior to making that appointment, on 11/15/18, the patie kristen was fearful about what those results might have been and started over-utilizing lorazepam to the p oint where she lost consciousness and fell on the floor of her sister's bathroom. She also aspirated at that time and was taken to the hospital by EMS upon discovery. When I spoke with her, the patien t denied symptoms of depression or any history of psychosis or alexandr. However, she did endorse signif icant anxiety specifically around the diagnosis of cancer, having had several first-degree relatives suffer from cancer and as a result. When I spoke with her daughter Meagan, Meagan notes that the patient quit cigarettes when she got her diagnosis in May. She was placed at some point on anita azepam by the [facility], and the family feels that she was misutilizing these. When I spoke with e oncology attending, who is physician server service assistant Marcus Jones, that clinician indicated that the CT scans turned out to reveal that the patient was essentially cancer free. Part B: Psychiatric treatment rendered: The patient was initially admitted on 11/16/18 to the medic al service where she was started on IV fluids. A chest x-ray revealed aspiration pneumonia and the p atient was started on a combination of clindamycin and levofloxacin. For her anxiety, we discontinue d lorazepam, which she had been misusing and replaced it with as-needed hydroxyzine. We also added a trial of Remeron 15 mg nightly and kept her on the same dose of Lexapro, which was 30 mg daily. Onc e she was medically cleared, she was transferred on 11/18/18 to the behavioral science unit, where in itially she was fatigued and often in her own bed. Progressively as her strength improved and she co ntinued to get over the overdose, she became more adherent with milieu activities. The patient repor donna that while she had been on the Ativan tablet, she had been in denial about having cancer. She st ated that this was the first time that it had fully dawned on her that she had cancer and that she ne eded to cope with this. She did have some sleep difficulties on the unit, for which we started a tri al of Ambien 5 mg nightly which worked well, and the patient understands that this is on a temporary basis until her other medications kick in. The patient was quite social on the unit receiving many v isits from concerned family and friends. She was future oriented, wanting to return home to sleep in her own bed and take care of her 82-year-old sister, who apparently has cognitive handicap. At this time, the patient is improved and warrants discharge to a less restrictive setting. We feel that no w that she is off Ativan and is no longer receiving either chemotherapy or antibiotics that she stand s a good chance of rebounding. She has been referred to the [facility], an d we are also recommending outpatient services at the [facility] in [facility] [place]. [id number]/[facility] #: [id number]
[2018-11-23] MEDS: Ondansetron TAB* 4 MG PO PRN (14:34)
== END 2018-11-23 16:45 | disposition home or self-care (01) | DRG 882 ==
LOC: ED 07:55 → MEDTELE 14:39 → OBSVTOIN 11-17 16:00 → BSU 11-18 17:00
PROVIDERS: ADMIT Internal Medicine; ATTEND Psychiatry & Neurology Psychiatry
DX: F43.22 Adjustment disorder with anxiety (principal); J69.0 Pneumonitis due to inhalation of food and vomit; C34.90 Malignant neoplasm of unspecified part of unspecified bronchus or lung; T42.4X2A Poisoning by benzodiazepines, intentional self-harm, initial encounter; F32.9 Major depressive disorder, single episode, unspecified; M54.9 Dorsalgia, unspecified; M25.512 Pain in left shoulder; M25.511 Pain in right shoulder; K20.8 Other esophagitis; Y92.022 Bathroom in mobile home as the place of occurrence of the external cause; Z79.899 Other long term (current) drug therapy; Z88.2 Allergy status to sulfonamides; Z87.891 Personal history of nicotine dependence; Z88.8 Allergy status to other drugs, medicaments and biological substances; Z91.030 Bee allergy status; Z79.51 Long term (current) use of inhaled steroids; Z80.7 Family history of other malignant neoplasms of lymphoid, hematopoietic and related tissues
CPT/HCPCS: 36415; 70450; 71045; 80053; 80061; 80307; 80320; 80329; 81003; 81015; 83036; 83605; 84443; 84484; 85025; 85027; 87040; 87077; 87086; 87186; 93005; 99222; 99231; 99232; 99238; 99285; A9270-GY; G0379; G0480; G8978-GP-CK; G8979-GP-CI; J1642; J1650; J2543

== ENCOUNTER 2021-06-12 16:26 | Inpatient (IN) ==
[2021-06-12] MEDS: Ondansetron 4 mg VIAL 2 MG/ML 2 ml VIAL IV PRN (21:17)
[2021-06-12] MEDS ORDERED: Lorazepam PYXIS KEY PRN (22:11)
[2021-06-12] MEDS: LORazepam 2 mg VIAL 1 ml IV PUSH PRN (22:49)
[2021-06-13] MEDS: Ondansetron 4 mg VIAL 2 MG/ML 2 ml VIAL IV PRN (10:28)
[2021-06-13] MEDS: Venlafaxine XR 75 mg PO SCH (10:31)
[2021-06-13] MEDS: Cholecalciferol (VIT D3) 1,000 unit TAB PO SCH (10:31)
[2021-06-13] MEDS: LORazepam 2 mg VIAL 1 ml IV PUSH PRN (22:13)
[2021-06-14] MEDS: LORazepam 2 mg VIAL 1 ml IV PUSH PRN ×2 (05:29→10:54)
[2021-06-14] MEDS: Venlafaxine XR 75 mg PO SCH (09:37)
[2021-06-14] MEDS: Cholecalciferol (VIT D3) 1,000 unit TAB PO SCH (09:39)
[2021-06-15] MEDS: Ondansetron 4 mg VIAL 2 MG/ML 2 ml VIAL IV PRN (09:05)
[2021-06-15] MEDS: LORazepam 2 mg VIAL 1 ml IV PUSH PRN (09:23)
[2021-06-15] MEDS ORDERED: Lorazepam PYXIS KEY PRN (09:40)
[2021-06-15] MEDS: Venlafaxine XR 75 mg PO SCH (10:57)
[2021-06-15] MEDS: Cholecalciferol (VIT D3) 1,000 unit TAB PO SCH (10:57)
[2021-06-15] MEDS: LORazepam 2 mg VIAL 1 ml IV PUSH SCH ×3 (11:07→22:05)
[2021-06-15] MEDS ORDERED: LORazepam 2 mg VIAL 1 ml IV PUSH PRN (16:46)
[2021-06-16] MEDS: LORazepam 2 mg VIAL 1 ml IV PUSH SCH ×3 (06:30→18:25)
[2021-06-16] MEDS: Ondansetron 4 mg VIAL 2 MG/ML 2 ml VIAL IV PRN (07:49)
[2021-06-16] MEDS: Cholecalciferol (VIT D3) 1,000 unit TAB PO SCH (07:50)
[2021-06-16] MEDS: Venlafaxine XR 75 mg PO SCH (07:50)
[2021-06-17] MEDS: LORazepam 2 mg VIAL 1 ml IV PUSH SCH ×4 (00:40→17:16)
[2021-06-17] MEDS: Ondansetron 4 mg VIAL 2 MG/ML 2 ml VIAL IV PRN ×2 (10:21→17:19)
[2021-06-17] MEDS: Venlafaxine XR 75 mg PO SCH (10:22)
[2021-06-17] MEDS: Cholecalciferol (VIT D3) 1,000 unit TAB PO SCH (10:22)
[2021-06-18] MEDS: LORazepam 2 mg VIAL 1 ml IV PUSH SCH ×6 (00:11→22:37)
[2021-06-18] MEDS: Venlafaxine XR 75 mg PO SCH (08:52)
[2021-06-18] MEDS: Cholecalciferol (VIT D3) 1,000 unit TAB PO SCH (08:53)
[2021-06-18] MEDS ORDERED: LORazepam 2 mg VIAL 1 ml IV PUSH PRN (09:29)
[2021-06-18 12:14] VITALS: BP 93/38
[2021-06-19] MEDS: LORazepam 2 mg VIAL 1 ml IV PUSH SCH ×3 (03:02→10:01)
[2021-06-19] MEDS: Cholecalciferol (VIT D3) 1,000 unit TAB PO SCH (08:14)
[2021-06-19] MEDS: Venlafaxine XR 75 mg PO SCH (08:14)
[2021-06-19 08:47] LABS: Rapid COVID-19 Molecular Undetected (Undetected)
== END 2021-06-19 13:00 | disposition hospice, inpatient (51) | DRG 862 ==
LOC: CHOA 16:26 → MED 17:12
PROVIDERS: ADMIT Internal Medicine Hematology & Oncology; ATTEND Internal Medicine Hematology & Oncology